=== PATIENT | male | born 1945 | race Caucasian/White ===

== ENCOUNTER 2022-12-30 07:39 | Inpatient (IN) | payer MEDICARE, SELFPAY ==
[2022-12-30] VITALS (30 sets, daily range): BP systolic 80–137; BP diastolic 54–81; PULSE 67–97; RESP 14–24; TEMP 35.8–37.1; O2SAT 88–95; BMI 29.9
--- NOTE | 2022-12-30 08:44 | CRLHL7_ITS ---
For Patients: As a result of the Century Cures Act, medical imaging exams and procedure reports are released immediately into your electronic medical record. You may view this report before your referring provider. If you have questions, please contact your health care provider. INDICATION: RLQ pain TECHNIQUE: CT abdomen and pelvis with ISOVUE 370 91CC IV contrast. COMPARISON: None. FINDINGS: The liver is normal in size, shape and attenuation. Gallbladder and biliary tree are normal. The spleen, adrenal glands and pancreas are within normal limits. The kidneys are unremarkable. Dilated fluid filled appendix measures up to 2 cm. There is surgery wall thickening severe surrounding inflammation. There are at least 2 appendicoliths with the larger at the appendix base measuring 1.2 cm. No evidence of rim enhancing collection to suggest abscess. No evidence of free air. Right lower quadrant mesenteric inflammation and Vasa recta engorgement as well as mildly prominent subcentimeter lymph nodes which are likely reactive. Pelvic organs are unremarkable. The lower chest is unremarkable. IMPRESSION: Acute appendicitis with severe surrounding inflammation and a 1.2 cm appendicolith at the appendix base. No evidence of rim enhancement to suggest abscess. Please note that all CT scans at this facility use dose modulation, iterative reconstruction, and/or weight-based dosing when appropriate to reduce radiation dose to as low as reasonably achievable. Dictated by Juan Ramon Shelton MD @ 12/30/2022 10:42:40 AM (Electronically Signed)
--- NOTE | 2022-12-30 08:45 | ED.ABDPAIN ---
HPI - Abdominal Pain General Chief Complaint: Abdominal Pain Stated Complaint: Abdominal pain/nausea/vomiting Time Seen by Provider: 12/30/22 08:39 History of Present Illness HPI narrative: This 77-year-old male comes in with abdominal pain that began a day and half ago. He states that it is a constant pain and it is located in the right lower quadrant. The pain is worse with movement. He has had some nausea, vomiting, and diarrhea. He has not taken much to drink and has not had any interest in eating food. Prior to this he was in good health. He does not report any fevers. Related Data Home Medications Medication Instructions Recorded Confirmed aspirin 81 mg chewable tablet 81 mg PO DAILY 12/30/22 12/30/22 atorvastatin 10 mg tablet 10 mg PO DAILY 12/30/22 12/30/22 lisinopril 10 mg tablet 10 mg PO DAILY 12/30/22 12/30/22 Allergies Allergy/AdvReac Type Severity Reaction Status Date / Time penicillan cream Allergy Uncoded 12/30/22 08:12 Review of Systems Status of ROS Reports: 10 or more systems reviewed and unremarkable except as noted in History and below Narrative Constitutional: No fevers, no weight gain or loss. Eyes: No discharge. No vision changes. HENT: No congestion, no sore throat, no ear pain. Cardiovascular: No chest pain, no palpitations. Respiratory: No shortness of breath, no wheezes, no cough. Gastrointestinal: Abdominal pain with vomiting and diarrhea as described above. Genitourinary: No dysuria, no hematuria. Musculoskeletal: Normal range of motion. Skin: No rashes, no pruritis. Neurological: No dizziness, weakness, sensory change, speech change. Endo/Heme/Allergies: No bruising or bleeding. No polydipsia. Pysch: no suicidality, no anxiety, no insomnia. All other systems reviewed and are negative. PFSH PFSH Social History Smoking Status: Never smoker Do you use any of these nicotine containing products: None How often do you have a drink containing alcohol: 2-4 times a month How many standard drinks containing alcohol do you have on a typical day: 1 or 2 AUDIT-C Alcohol total score: 2 Non-prescribed substance use: denies use Exam Narrative: Exam Narrative: Constitutional: Well-developed, well-nourished, no acute distress. HEENT: Normocephalic, atraumatic. Neck: Normal range of motion. Nontender. Supple. Heart: Regular. No murmurs. Normal rate. Intact distal pulses. Lungs: Clear to auscultation. No chest discomfort. No wheezes, rhonchi, or rales. Abdomen: Normal bowel sounds. Tenderness in the right lower quadrant. Rebound tenderness is present. Genitalia: Deferred. Back: No midline tenderness. Normal range of motion. Extremities: Normal range of motion. No injury. Skin: Intact. No rash. Warm. No erythema or pallor. Neurologic: No altered sensation. No weakness. Alert and oriented. Psychiatric: No suicidality. No anxiety or depression. No insomnia. Nursing notes and vitals signs are reviewed. Const: Vital Signs, click to edit/add: Vital Signs - 24 hr 12/30/22 08:04 Temperature 97.8 F Pulse Rate [Pulse Oximeter] 87 Respiratory Rate 20 Blood Pressure [Ri ght Upper Arm] 114/66 Pulse Oximetry 94 Oxygen Delivery Me thod Room Air Course Vital Signs Vital signs: Initial Vital Signs Temperature 97.8 F 12/30/22 08:04 Temperature Source Temporal Artery Scan 12/30/22 08:04 Pulse Rate 87 12/30/22 08:04 Respiratory Rate 20 12/30/22 08:04 Blood Pressure 114/66 12/30/22 08:04 Blood Pressure Mean 82 12/30/22 08:04 Blood Pressure Position Sitting 12/30/22 08:04 Pulse Oximetry 94 12/30/22 08:04 Oxygen Delivery Method 12/30/22 08:04 Vital Signs Temperature 97.8 F 12/30/22 08:04 Pulse Rate 87 12/30/22 08:04 Respiratory Rate 20 12/30/22 08:04 Blood Pressure 114/66 12/30/22 08:04 Pulse Oximetry 94 12/30/22 08:04 Oxygen Delivery Method 12/30/22 08:04 Temperature 97.8 F 12/30/22 08:04 Pulse Rate 87 12/30/22 08:04 Respiratory Rate 20 12/30/22 08:04 Blood Pressure 114/66 12/30/22 08:04 Pulse Oximetry 94 12/30/22 08:04 Oxygen Delivery Method 12/30/22 08:04 MDM - Abdominal Pain MDM Narrative Medical decision making narrative: This patient comes in with abdominal pain and rebound tenderness. Pain is located in the right lower quadrant and is suspicious for appendicitis. An IV was established and CT imaging with contrast is acquired. This does show evidence of an uncomplicated acute appendicitis. I did contact the surgeon on-call, Dr. Martinez, who is currently in clinic and will look at images and arrange for appendectomy today. Dr. Bello will be able to do the surgery. Lab Data Labs: Lab Results 12/30/22 12/30/22 12/30/22 Range/Units 09:04 09:04 10:48 WBC 14.02 H (4.50-11.00) K/uL RBC 5.51 (4.30-5.90) m/uL Hgb 16.2 (13.5-17.5) gm/dL Hct 47.4 (37.0-53.0) % MCV 86 (80-100) fL MCH 29 (26-34) pg MCHC 34 (32-36) gm/dL RDW Coeff of Anastasiia 11.9 (11.5-15.5) % Plt Count 199 (140-440) K/uL Neut % (Auto) 84.9 H (42.0-72.0) % Lymph % (Auto) 8.0 L (20-44) % [place] % (Auto) 6.8 (0.0-11.0) % Eos % (Auto) 0.0 (0.0-7.0) % Baso % (Auto) 0.1 (0.0-3.0) % Neut # (Auto) 11.90 H (1.7-7.0) K/uL Lymph # (Auto) 1.10 (0.90-2.90) K/uL [place] # (Auto) 1.00 H (0.00-0.90) K/UL Eos # (Auto) 0.00 (0.00-0.50) K/uL Baso # (Auto) 0.00 (0.00-0.30) K/uL Sodium 136 (135-149) mmol/L Potassium 4.1 (3.6-5.1) mmol/L Chloride 104 (96-114) mmol/L Carbon Dioxide 25 (20-32) mmol/L BUN 15 (7-30) mg/dL Creatinine 1.0 (0.5-1.5) mg/dL Estimated Creat Clear 56.71 Estimated GFR 78 ml/min Glucose 144 H (60-115) mg/dL Calcium 8.8 (8.4-10.6) mg/dL Total Bilirubin 0.9 (0.1-1.5) mg/dL Direct Bilirubin 0.2 (0.0-0.5) mg/dL AST 28 (12-35) U/L ALT 34 (4-50) U/L Alkaline Phosphatase 117 (40-150) U/L Total Protein 7.6 (6.0-8.3) g/dL Albumin 4.2 (3.3-5.0) g/dL Lipase 65 (23-300) U/L SARS-CoV-2 (PCR) Negative SARS-CoV-2 (Negative) Imaging Data CT scan - abdomen: Radiologist's impression: Acute appendicitis with severe surrounding inflammation and a 1.2 cm appendicolith at the appendix base. No evidence of rim enhancement to suggest abscess. Discharge Plan Discharge Clinical Impression: Acute appendicitis Patient Disposition: XFER to OR Condition: Unchanged Prescriptions: No Action lisinopril 10 mg tablet 10 mg PO DAILY atorvastatin 10 mg tablet 10 mg PO DAILY aspirin 81 mg tablet,chewable 81 mg PO DAILY Follow Up/Referrals: Provider,Not a Local [Primary Care Provider] -
[2022-12-30] MEDS: 0.9 % SODIUM CHLORIDE 1000 ml 1,000 ML IV (09:02)
[2022-12-30] MEDS: ONDANSETRON 2 MG/ML inj 4 MG IVP (09:03)
[2022-12-30 09:18] LABS: Basophils Percent Auto 0.1 % (0.0-3.0); Hematocrit 47.4 % (37.0-53.0); Hemoglobin* 16.2 gm/dL (13.5-17.5); Immature Granulocytes Pct Auto 0.2 %; Mean Corpuscular HGB Conc 34 gm/dL (32-36); Mean Corpuscular Hemoglobin 29 pg (26-34); Mean Corpuscular Volume 86 fL (80-100); Monocytes Percent Auto 6.8 % (0.0-11.0); Neutrophils Percent Auto 84.9 % (42.0-72.0); Platelet Count* 199 K/uL (140-440); RDW Coefficient of Variation % 11.9 % (11.5-15.5); Red Blood Count 5.51 m/uL (4.30-5.90); White Blood Count* 14.02 K/uL (4.50-11.00)
[2022-12-30 09:21] LABS: Slide Review Reflex No
[2022-12-30 09:32] LABS: Albumin* 4.2 g/dL (3.3-5.0)
[2022-12-30 09:33] LABS: Chloride* 104 mmol/L (96-114); Potassium* 4.1 mmol/L (3.6-5.1); Sodium* 136 mmol/L (135-149)
[2022-12-30 09:35] LABS: Bilirubin Direct* 0.2 mg/dL (0.0-0.5); Bilirubin Total* 0.9 mg/dL (0.1-1.5); Carbon Dioxide* 25 mmol/L (20-32); Est. Creatinine Clearance* 56.71; Estimated Glomerular Filt Rate 78 ml/min
[2022-12-30 09:36] LABS: Alanine Aminotransferase* 34 U/L (4-50); Alkaline Phosphatase* 117 U/L (40-150); Aspartate Amino Transferase* 28 U/L (12-35); Blood Urea Nitrogen* 15 mg/dL (7-30); Calcium* 8.8 mg/dL (8.4-10.6); Glucose* 144 mg/dL (60-115); Lipase* 65 U/L (23-300); Total Protein* 7.6 g/dL (6.0-8.3)
[2022-12-30 11:34] LABS: SARS PCR* Negative SARS-CoV-2 (Negative)
--- NOTE | 2022-12-30 12:43 | PM.GSCN ---
History of Present Illness Consult details Date Seen: 12/30/22 Consult date: 12/30/22 Narrative: Patient presented to the emergency department with a 2 day history of right lower quadrant abdominal pain. He states that the pain started Friday. He has never had pain like this before. Nothing seems to make the pain better and it has gotten worse since he 1st noticed it. He denies any nausea or vomiting. He has had a decrease in appetite. He last ate on Friday. His abdominal surgical history is positive for an inguinal hernia done 30 years prior. 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 Review of Systems Status of ROS: Reports: 6 or more systems reviewed and unremarkable except as noted in History and below [facility] Social History Smoking Status: Never smoker Do you use any of these nicotine containing products: None How often do you have a drink containing alcohol: 2-4 times a month How many standard drinks containing alcohol do you have on a typical day: 1 or 2 AUDIT-C Alcohol total score: 2 Non-prescribed substance use: denies use Meds Home Medications and Allergies Home Medications Medication Instructions Recorded Confirmed Type aspirin 81 mg chewable tablet 81 mg PO DAILY 12/30/22 12/30/22 History atorvastatin 10 mg tablet 10 mg PO DAILY 12/30/22 12/30/22 History lisinopril 10 mg tablet 10 mg PO DAILY 12/30/22 12/30/22 History Allergies Allergy/AdvReac Type Severity Reaction Status Date / Time penicillan cream Allergy Uncoded 12/30/22 08:12 Exam Narrative: Exam Narrative: General: Alert and oriented, no acute distress. Respiratory: Equal breath rise bilaterally, maintained on room air CV: Regular rhythm rate, well perfused Abdomen: Soft, tender to palpation right lower quadrant with some guarding. Const: Vital Signs, click to edit/add: Vital Signs - 24 hr 12/30/22 08:04 Temperature 97.8 F Pulse Rate [Pulse Oximeter] 87 Respiratory Rate 20 Blood Pressure [Ri ght Upper Arm] 114/66 Pulse Oximetry 94 Oxygen Delivery Me thod Room Air Results Labs Labs: Abnormal lab results 12/30/22 12/30/22 Range/Units 09:04 09:04 WBC 14.02 H (4.50-11.00) K/uL Neut % (Auto) 84.9 H (42.0-72.0) % Lymph % (Auto) 8.0 L (20-44) % Neut # (Auto) 11.90 H (1.7-7.0) K/uL [place] # (Auto) 1.00 H (0.00-0.90) K/UL Glucose 144 H (60-115) mg/dL Diabetes panel 12/30/22 Range/Units 09:04 Sodium 136 (135-149) mmol/L Potassium 4.1 (3.6-5.1) mmol/L Chloride 104 (96-114) mmol/L Carbon Dioxide 25 (20-32) mmol/L BUN 15 (7-30) mg/dL Creatinine 1.0 (0.5-1.5) mg/dL Glucose 144 H (60-115) mg/dL Calcium 8.8 (8.4-10.6) mg/dL AST 28 (12-35) U/L ALT 34 (4-50) U/L Alkaline Phosphatase 117 (40-150) U/L Total Protein 7.6 (6.0-8.3) g/dL Albumin 4.2 (3.3-5.0) g/dL Calcium panel 12/30/22 Range/Units 09:04 Calcium 8.8 (8.4-10.6) mg/dL Albumin 4.2 (3.3-5.0) g/dL Pituitary panel 12/30/22 Range/Units 09:04 Sodium 136 (135-149) mmol/L Potassium 4.1 (3.6-5.1) mmol/L Chloride 104 (96-114) mmol/L Carbon Dioxide 25 (20-32) mmol/L BUN 15 (7-30) mg/dL Creatinine 1.0 (0.5-1.5) mg/dL Glucose 144 H (60-115) mg/dL Calcium 8.8 (8.4-10.6) mg/dL Adrenal panel 12/30/22 Range/Units 09:04 Sodium 136 (135-149) mmol/L Potassium 4.1 (3.6-5.1) mmol/L Chloride 104 (96-114) mmol/L Carbon Dioxide 25 (20-32) mmol/L BUN 15 (7-30) mg/dL Creatinine 1.0 (0.5-1.5) mg/dL Glucose 144 H (60-115) mg/dL Calcium 8.8 (8.4-10.6) mg/dL Total Bilirubin 0.9 (0.1-1.5) mg/dL AST 28 (12-35) U/L ALT 34 (4-50) U/L Alkaline Phosphatase 117 (40-150) U/L Total Protein 7.6 (6.0-8.3) g/dL Albumin 4.2 (3.3-5.0) g/dL All other labs normal. Imaging Abdomen CT scan report/results: report reviewed and image reviewed Assessment and Plan Assessment and plan (1) Acute appendicitis: Status: Acute Plan The patient is a 77-year-old male who presented with a history, exam and imaging findings consistent with acute appendicitis. I discussed the treatment options with the patient including non-surgical and surgical options. I recommended laparoscopic appendectomy. The risks of surgery were reviewed with the patient including the risks of bleeding, post-operative wound or intra-abdominal infection, injury to abdominal structures and possible conversion to an open operation. We also discussed anesthetic complications including MS, stroke, respiratory failure and blood clots. The patient voiced an understanding of our conversation, had the opportunity to ask questions, agreed to accept the risks of surgery and asked that we proceed with surgery. -OR for laparoscopic appendectomy -NPO, IV fluids -will give preoperative Zosyn -plan to admit for observation postoperatively
[2022-12-30] MEDS: PIPERACILLIN/TAZOBACTAM 3.375 GM in 0.9 % SODIUM CHLORIDE Mini-bag 100 ML IVPB ×2 (13:20→20:16)
--- NOTE | 2022-12-30 13:37 | W.ANESCHARGE ---
Anesthesia Charges Start Date/Time Anesthesia Start Date: 12/30/22 Anesthesia Start Time: 13:12 Stop Date/Time Anesthesia Stop Date: 12/30/22 Anesthesia Stop Time: 17:03 Summary Emergency: MDA Extremes of Age - Over 70 or under 1: MDA
[2022-12-30] MEDS: BUPIVACAINE 0.5% 30 ML INJECTION (14:33)
--- NOTE | 2022-12-30 16:35 | CRLHL7_ITS ---
For Patients: As a result of the Century Cures Act, medical imaging exams and procedure reports are released immediately into your electronic medical record. You may view this report before your referring provider. If you have questions, please contact your health care provider. INDICATION: Postoperative instrument check. TECHNIQUE: Abdomen 1 view(s) COMPARISON: CT abdomen/pelvis earlier same day dated 12/30/2022. FINDINGS/IMPRESSION: Loop of catheter tubing projecting over the right lower quadrant of the abdomen, presumably reflective of a drain. Metallic surgical clip projects over the right lower quadrant, adjacent to the right L3 transverse process. Otherwise, no evidence of a retained metallic surgical instrument is identified with the provided field of view. Contrast is present within the urinary bladder. Few loops of mildly dilated small bowel in the upper abdomen, likely reflective of ileus. No acute osseous abnormality. Dictated by Lorna Soto MD @ 12/30/2022 5:04:47 PM (Electronically Signed)
--- NOTE | 2022-12-30 17:06 | W.ANESCHARGE ---
Anesthesia Charges Start Date/Time Anesthesia Start Date: 12/30/22 Anesthesia Start Time: 13:12 Stop Date/Time Anesthesia Stop Date: 12/30/22 Anesthesia Stop Time: 17:03 Summary Emergency: SUIT [employer]KER
--- NOTE | 2022-12-30 17:37 | PM.GSPRC ---
Operative Note Date of procedure: 12/30/22 Procedure Description: After discussing the risks and benefits of the procedure, the patient signed informed consent.? The operative site was marked and the patient was brought to the operating room and placed on the operating table in supine position.? Care was taken to pad the patient's pressure points.?? The patient was then [intubated/given sedation] by anesthesia.?? The operative site was then prepped and draped in the usual sterile fashion.? A time-out was then performed. ? Sterile dressings were then applied. ? The patient was then woken and transported to the recovery area in stable condition. ? The patient tolerated the procedure well. Surgeon: Pat Bello MD
[2022-12-30] MEDS: LACTATED RINGERS 1000 ML 1,000 ML 125 ML IV (17:51)
--- NOTE | 2022-12-30 23:43 | PC.NURSE ---
Pt requiring 3L/O2 via NC to maintain SpO2 91-93%. RR= 24 and shallow, pt encouraged to deep breathe. BP's soft, 90's/50's, pt has denied dizziness or lightheadedness. Surgical dressing to abdomen C,D,&I with patent KEVIN draining bloody/serosanguineous fluid approx. 30 ml this shift. Rates pain 2/10, declines pain meds at this time.
[2022-12-31] VITALS (7 sets, daily range): BP systolic 104–143; BP diastolic 64–81; PULSE 71–83; RESP 16–18; TEMP 36.4–36.7; O2SAT 90–94
[2022-12-31] MEDS: PIPERACILLIN/TAZOBACTAM 3.375 GM in 0.9 % SODIUM CHLORIDE Mini-bag 100 ML IVPB ×4 (01:47→19:39)
[2022-12-31] MEDS: LACTATED RINGERS 1000 ML 1,000 ML 125 ML IV ×2 (01:48→12:07)
[2022-12-31] MEDS: HYDROmorphone 0.5 mg/0.5 ml inj IVP ×2 (03:46→13:04)
--- NOTE | 2022-12-31 06:33 | PC.NURSE ---
Shift note: Surgical dressing is C/D/I no additional drainage. KEVIN drain is intact, with medium amount of output, see I&Os. Pt rates pain 2-5/10, RN treated per eMAR with relief. No c/o nausea, bowel sounds present, pt is voiding.
[2022-12-31 07:09] LABS: Basophils Percent Auto 0.1 % (0.0-3.0); Hematocrit 41.4 % (37.0-53.0); Hemoglobin* 14.1 gm/dL (13.5-17.5); Immature Granulocytes Pct Auto 0.3 %; Lymphocytes Percent Auto 10.3 % (20-44); Mean Corpuscular HGB Conc 34 gm/dL (32-36); Mean Corpuscular Hemoglobin 30 pg (26-34); Mean Corpuscular Volume 87 fL (80-100); Monocytes Percent Auto 7.8 % (0.0-11.0); Neutrophils Percent Auto 81.5 % (42.0-72.0); Platelet Count* 160 K/uL (140-440); RDW Coefficient of Variation % 12.3 % (11.5-15.5); Red Blood Count 4.74 m/uL (4.30-5.90); White Blood Count* 16.15 K/uL (4.50-11.00)
[2022-12-31 07:20] LABS: Chloride* 106 mmol/L (96-114); Sodium* 137 mmol/L (135-149)
[2022-12-31 07:21] LABS: Potassium* 4.5 mmol/L (3.6-5.1); Slide Review Reflex No
[2022-12-31 07:23] LABS: Carbon Dioxide* 28 mmol/L (20-32); Creatinine* 1.2 mg/dL (0.5-1.5); Est. Creatinine Clearance* 47.26; Estimated Glomerular Filt Rate 63 ml/min
[2022-12-31 07:24] LABS: Blood Urea Nitrogen* 21 mg/dL (7-30); Calcium* 7.7 mg/dL (8.4-10.6); Glucose* 140 mg/dL (60-115)
--- NOTE | 2022-12-31 07:49 | PM.GSPN ---
Subjective Subjective Date Seen: 12/31/22 Interval history: Patient is doing well this morning. He is sore over the incision, but is reporting overall improvement in his abdominal pain since admission. No appetite, denies any nausea. Is tolerating some sips and ice chips this morning. He did pass a little bit of gas this morning, no bowel movement. Exam Narrative: Exam Narrative: General: Alert and oriented, no acute distress Abdomen: Soft, appropriately tender over incision sites. Mild distention, no guarding or rebound. Right lower quadrant drain in place with minimal serosanguineous output. Const: Vital Signs, click to edit/add: Vital Signs - 24 hr 12/30/22 08:04 12/30/22 10:06 12/30/22 10:30 Temperature 97.8 F Pulse Rate 82 93 Pulse Rate [Left P ulse Oximeter] Pulse Rate [Pulse Oximeter] 87 Respiratory Rate 20 Blood Pressure Blood Pressure [Ri ght Arm] Blood Pressure [Ri ght Upper Arm] 114/66 Pulse Oximetry 94 94 94 Oxygen Delivery Me thod Room Air Oxygen Flow Rate 12/30/22 10:34 12/30/22 11:00 12/30/22 11:01 Temperature Pulse Rate 85 86 87 Pulse Rate [Left P ulse Oximeter] Pulse Rate [Pulse Oximeter] Respiratory Rate Blood Pressure 137/72 136/68 Blood Pressure [Ri ght Arm] Blood Pressure [Ri ght Upper Arm] Pulse Oximetry 94 95 93 Oxygen Delivery Me thod Oxygen Flow Rate 12/30/22 11:30 12/30/22 11:32 12/30/22 12:00 Temperature Pulse Rate 97 92 93 Pulse Rate [Left P ulse Oximeter] Pulse Rate [Pulse Oximeter] Respiratory Rate Blood Pressure 125/72 Blood Pressure [Ri ght Arm] Blood Pressure [Ri ght Upper Arm] Pulse Oximetry 92 93 92 Oxygen Delivery Me thod Oxygen Flow Rate 12/30/22 12:01 12/30/22 12:30 12/30/22 12:32 Temperature 98.7 F Pulse Rate 93 92 87 Pulse Rate [Left P ulse Oximeter] Pulse Rate [Pulse Oximeter] Respiratory Rate Blood Pressure 130/81 133/72 Blood Pressure [Ri ght Arm] Blood Pressure [Ri ght Upper Arm] Pulse Oximetry 92 93 92 Oxygen Delivery Me thod Oxygen Flow Rate 12/30/22 17:05 12/30/22 17:10 12/30/22 17:15 Temperature 96.5 F L Pulse Rate 80 76 78 Pulse Rate [Left P ulse Oximeter] Pulse Rate [Pulse Oximeter] Respiratory Rate 14 14 14 Blood Pressure 94/66 95/66 87/65 L Blood Pressure [Ri ght Arm] Blood Pressure [Ri ght Upper Arm] Pulse Oximetry 88 90 93 Oxygen Delivery Me thod Nasal Cannula Nasal Cannula Nasal Cannula Oxygen Flow Rate 2 4 4 12/30/22 17:20 12/30/22 17:25 12/30/22 17:30 Temperature Pulse Rate 75 77 75 Pulse Rate [Left P ulse Oximeter] Pulse Rate [Pulse Oximeter] Respiratory Rate 14 14 14 Blood Pressure 90/64 95/67 96/70 Blood Pressure [Ri ght Arm] Blood Pressure [Ri ght Upper Arm] Pulse Oximetry 93 94 93 Oxygen Delivery Me thod Nasal Cannula Nasal Cannula Nasal Cannula Oxygen Flow Rate 4 4 4 12/30/22 17:35 12/30/22 17:45 12/30/22 18:00 Temperature 97 F L 97.6 F Pulse Rate 74 70 Pulse Rate [Left P ulse Oximeter] 70 Pulse Rate [Pulse Oximeter] Respiratory Rate 14 24 24 Blood Pressure 80/61 L Blood Pressure [Ri ght Arm] 97/54 L 101/60 Blood Pressure [Ri ght Upper Arm] Pulse Oximetry 93 92 Oxygen Delivery Me thod Nasal Cannula Nasal Cannula Nasal Cannula Oxygen Flow Rate 4 3 3 12/30/22 18:15 12/30/22 18:30 12/30/22 18:37 Temperature 97.3 F L Pulse Rate Pulse Rate [Left P ulse Oximeter] 67 71 70 Pulse Rate [Pulse Oximeter] Respiratory Rate 24 24 24 Blood Pressure Blood Pressure [Ri ght Arm] 93/58 L 103/63 97/54 L Blood Pressure [Ri ght Upper Arm] Pulse Oximetry 93 95 91 Oxygen Delivery Me thod Nasal Cannula Nasal Cannula Nasal Cannula Oxygen Flow Rate 3 3 3 12/30/22 18:37 12/30/22 18:45 12/30/22 19:15 Temperature 98 F Pulse Rate Pulse Rate [Left P ulse Oximeter] 70 69 Pulse Rate [Pulse Oximeter] Respiratory Rate 24 20 20 Blood Pressure Blood Pressure [Ri ght Arm] 109/69 97/81 Blood Pressure [Ri ght Upper Arm] Pulse Oximetry 91 93 94 Oxygen Delivery Me thod Nasal Cannula Nasal Cannula Nasal Cannula Oxygen Flow Rate 3 3 3 12/30/22 19:45 12/30/22 20:45 12/30/22 21:45 Temperature Pulse Rate Pulse Rate [Left P ulse Oximeter] 68 72 74 Pulse Rate [Pulse Oximeter] Respiratory Rate 20 20 20 Blood Pressure Blood Pressure [Ri ght Arm] 102/68 110/72 102/66 Blood Pressure [Ri ght Upper Arm] Pulse Oximetry 94 93 93 Oxygen Delivery Me thod Nasal Cannula Nasal Cannula Nasal Cannula Oxygen Flow Rate 3 3 3 12/30/22 22:45 12/31/22 03:00 Temperature 98 F Pulse Rate Pulse Rate [Left P ulse Oximeter] 74 73 Pulse Rate [Pulse Oximeter] Respiratory Rate 20 18 Blood Pressure Blood Pressure [Ri ght Arm] 101/64 104/68 Blood Pressure [Ri ght Upper Arm] Pulse Oximetry 93 93 Oxygen Delivery Me thod Nasal Cannula Nasal Cannula Oxygen Flow Rate 3 1 Labs/Imaging Labs Labs: WBC postoperatively did slightly increase 14--16 Imaging Imaging: No new imaging Progress Note: A&P Assessment and plan (1) Acute appendicitis: Status: Acute Assessment and Plan: Patient is postop day 1 laparoscopic converted to open appendectomy for perforated appendicitis. A right lower quadrant drain remains in place, output is serosanguineous. -continue NPO, okay for sips and ice chips -encourage ambulation, patient to walk the angelo 3 times this morning -continue to monitor drain output -trend fever and WBC curve -continue IV Zosyn -SCDs for DVT prophylaxis, Lovenox to start this evening
--- NOTE | 2022-12-31 15:08 | PC.NURSE ---
Patient is alert and orientated. Son is at bedside and supportive. Patient's pain ranged from a 2-5 at incision site. Abdominal dressing is clean,dry, intact and KEVIN drain is patient. Patient has been tolerating walks in the hallway. Tolerating sips and chips. Patient is reporting some reflux. Is now sitting up higher in bed and reported some relief. Waiting on callback from .
--- NOTE | 2022-12-31 18:01 | PC.NURSE ---
PATIENT PLEASANT AND COOPERATIVE, ALERT AND ORIENTED, UP SBA WITH TOLERATING WELL UP WALKING IN HALLWAYS X4 THUS FAR TODAY, RATING PAIN IN ABDOMEN 2/10 BEING MANAGED WITH PRN DILAUDID, PATIENT EXPRESSING SOME ACID REFLUX ALONG WITH INCREASED BURPING MD AWARE SEE NEW ORDERS, ATTEMPTED TO WEAN OFF OXYGEN TODAY ABLE TO KEEP SATS 88-92% ON RA WHILE SITTING UP IN CHAIR, WHEN LYING DOWN TO REST SATS DROP TO MID 80S REQUIRING 1L O2 TO MAINTAIN SATS 90% AND GREATER, MD AWARE, PATIENT USING IS TO 2500, DRESSING TO ABDOMEN CDI, KEVIN PATENT WITH MINIMAL OUTPUT.
[2022-12-31] MEDS: PANTOPRAZOLE SODIUM 40 MG INJ IVP (19:39)
[2022-12-31] MEDS: ENOXAPARIN 40 MG/0.4 ML INJ SUBCUT (20:40)
[2023-01-01] MEDS: LACTATED RINGERS 1000 ML 1,000 ML 125 ML IV ×3 (00:13→22:49)
[2023-01-01] MEDS: PIPERACILLIN/TAZOBACTAM 3.375 GM in 0.9 % SODIUM CHLORIDE Mini-bag 100 ML IVPB ×4 (01:23→19:30)
[2023-01-01 03:00] VITALS: BP 143/88; PULSE 77; RESP 16; TEMP 36.4; O2SAT 94
[2023-01-01] MEDS: ONDANSETRON 2 MG/ML inj IVP ×3 (05:18→14:51)
--- NOTE | 2023-01-01 05:23 | PC.NURSE ---
Shift note: Pt is doing well with A1, walker and GB to and from the BR. Dressing appears clean and dry, KEVIN patent and draining serosanguineous fluid. Abdomen appears large but pt denied any pain. At 0505, pt started vomiting. Vomitus bag given and Ondansetron 4mg given which wad effective. Pt confirmed that he has pass gas 2x tonight.
[2023-01-01 07:00] VITALS: BP 157/96; PULSE 76; RESP 16; TEMP 36.6; O2SAT 93
[2023-01-01 08:38] LABS: Basophils Absolute Auto 0.01 K/uL (0.00-0.30); Basophils Percent Auto 0.1 % (0.0-3.0); Hematocrit 41.5 % (37.0-53.0); Hemoglobin* 14.1 gm/dL (13.5-17.5); Immature Granulocytes Abs Auto 0.03 K/uL (0.00-0.30); Immature Granulocytes Pct Auto 0.3 %; Lymphocytes Percent Auto 6.7 % (20-44); Mean Corpuscular HGB Conc 34 gm/dL (32-36); Mean Corpuscular Hemoglobin 30 pg (26-34); Mean Corpuscular Volume 88 fL (80-100); Monocytes Percent Auto 8.4 % (0.0-11.0); Neutrophils Percent Auto 84.5 % (42.0-72.0); Platelet Count* 185 K/uL (140-440); RDW Coefficient of Variation % 12.4 % (11.5-15.5); Red Blood Count 4.73 m/uL (4.30-5.90); White Blood Count* 10.67 K/uL (4.50-11.00)
[2023-01-01 08:40] LABS: Slide Review Reflex No
[2023-01-01] MEDS: PANTOPRAZOLE SODIUM 40 MG INJ IVP (09:03)
[2023-01-01] MEDS: 0.9 % SODIUM CHLORIDE 250 ml IV (09:04)
--- NOTE | 2023-01-01 09:53 | PM.GSPN ---
Subjective Subjective Date Seen: 01/01/23 Interval history: Patient overall is doing well this morning. He denies any abdominal pain or distension. He did pass gas this morning, no bowel movement. His biggest complaint is persistent hiccups and burping. He denies any appetite. He did have a small emesis this morning. Denies any current nausea. Has been able to get up and walk the halls. No fevers overnight. Exam Narrative: Exam Narrative: General: Alert and oriented, no acute distress Abdomen: Mild distention, soft, appropriately tender over incision sites with no guarding or rebound. Drain in right lower quadrant with minimal serous output in drain. Right lower quadrant incision with tim in place clean/dry/intact with no concern for infection. Lap sites with Dermabond over incisions clean/dry/intact with no concern for infection. Const: Vital Signs, click to edit/add: Vital Signs - 24 hr 12/31/22 11:00 12/31/22 15:00 12/31/22 15:00 Temperature 98.1 F 97.6 F Pulse Rate [Left P ulse Oximeter] Pulse Rate [Right Pulse Oximeter] 79 79 Respiratory Rate 18 16 16 Blood Pressure [Ri ght Arm] 129/72 143/79 H Pulse Oximetry 92 91 Oxygen Delivery Me thod Nasal Cannula Nasal Cannula Oxygen Flow Rate 1 1 12/31/22 18:27 12/31/22 19:00 12/31/22 23:00 Temperature 98 F Pulse Rate [Left P ulse Oximeter] Pulse Rate [Right Pulse Oximeter] 83 Respiratory Rate 16 16 16 Blood Pressure [Ri ght Arm] 136/81 Pulse Oximetry 91 90 Oxygen Delivery Me thod Nasal Cannula Nasal Cannula Oxygen Flow Rate 1 1 12/31/22 23:00 12/31/22 23:00 01/01/23 03:00 Temperature 97.7 F 97.6 F Pulse Rate [Left P ulse Oximeter] Pulse Rate [Right Pulse Oximeter] 78 77 Respiratory Rate 18 16 16 Blood Pressure [Ri ght Arm] 122/79 143/88 H Pulse Oximetry 90 92 94 Oxygen Delivery Me thod Nasal Cannula Nasal Cannula Nasal Cannula Oxygen Flow Rate 1 1 1 01/01/23 07:00 01/01/23 07:00 Temperature 97.9 F Pulse Rate [Left P ulse Oximeter] 76 Pulse Rate [Right Pulse Oximeter] Respiratory Rate 16 16 Blood Pressure [Ri ght Arm] 157/96 H Pulse Oximetry 93 93 Oxygen Delivery Me thod Nasal Cannula Nasal Cannula Oxygen Flow Rate 1 1 Labs/Imaging Labs Labs: WBC has normalized (10), postop hemoglobin stable at 14.1 this is down from admission but likely represents dilution and intraoperative blood loss. Imaging Imaging: No new imaging today. Progress Note: A&P Assessment and plan (1) Acute appendicitis: Status: Acute Assessment and Plan: Patient is postop day 2 laparoscopic converted to open appendectomy for perforated appendicitis. A right lower quadrant drain remains in place, output is serous in quality. Patient is suffering from a postop ileus, this is not too surprising giving the abscess seen intraoperatively and evidence of perforation. Even though patient has started to pass gas, will hold off on advancing diet given recent episode of emesis. -continue NPO, okay for sips and ice chips -encourage ambulation -continue to monitor drain output -trend fever and WBC curve -continue IV Zosyn -SCDs for DVT prophylaxis, Lovenox
--- NOTE | 2023-01-01 10:03 | PM.GSPRC ---
Operative Note Date of procedure: 12/30/22 Pre-op diagnosis: Acute appendicitis Post-op diagnosis: Same,perforated with associated abscess Type of Procedure: Laparoscopic converted to open appendectomy Indications: Patient is a 77-year-old male who presented to the emergency department with a 2 day history of worsening right lower quadrant abdominal pain. Workup was obtained, including CT scan, which documented acute appendicitis. Risks and benefits of operative intervention were discussed at length with the patient. Risks included but was not limited to: Bleeding, infection, risk of damage to surrounding structures, possible need for additional procedures, possible need to convert to an open operation and postoperative complications such as pneumonia, pulmonary emboli or OK. All questions and concerns were addressed with the patient agreeing to proceed. Procedure Description: After discussing the risks and benefits of the procedure, the patient signed informed consent.? The operative site was marked and the patient was brought to the operating room and placed on the operating table in supine position.? Care was taken to pad the patient's pressure points.?? The patient was then intubated by anesthesia.?? The operative site was then prepped and draped in the usual sterile fashion.? A time-out was then performed. Entrance to the abdomen was obtained via a 5 mm optical trocar in the left upper quadrant. The abdomen was insufflated and briefly surveyed for any signs of injury. There were none. A 12 mm port was placed lateral to the umbilicus as well as a 5 mm port in the left lower quadrant under direct vision. The patient was then placed in Trendelenburg position with the right side up. The small bowel was gently moved out of the way. The cecum was visualized but the appendix was not easily identified with a large amount of surrounding inflammation and adherent small bowel to where the appendix would be. The adhesions were gently taken down with blunt dissection and a moderate amount of purulence expelled. The suction platen press operator was used to help minimize contamination intraoperatively. The abscess cavity had surrounding fibrinous exudate and some necrotic tissue. The cecum was mobilized laparoscopically by taking down lateral attachments with hook cautery. Once the cecum was free the base of the appendix was able to be identified. There was a large perforation identified at the base with a large calcified stool ball. The stool ball was removed from the abdomen via an Endo-Catch bag to limit contamination. The base of the appendix was circumferentially dissected free and the posterior aspect of the cecum was also dissected to help assist with mobilization. This was made difficult secondary to adhesions from the abscess. A 45 mm purple staple load was used to go across the base of the appendix and partially on the cecum. After the staple was fired the staple line was inspected. Due to the necrotic nature of the tissue the staple line did not hold and there was evidence of a persistent perforation in the cecum. The decision was made at this time to convert to an open operation. All laparoscopic equipment was removed from the field. A transverse incision was made in the right lower quadrant with a 15 scalpel. Dissection was carried down through subcutaneous tissue. The anterior fascia was sharply incised. The underlying rectus muscle was partially transected. The posterior fascia and peritoneum was grasped and sharply incised to enter into the abdomen. The previous placed air was decompressed from the abdomen and a small Luiz wound retractor placed within the incision. Despite the previous laparoscopic mobilization of the cecum and appendix, visualization of the cecum was difficult secondary to dilated bowel and surrounding adhesions. Once the cecum was identified a Anya was used to bring the appendiceal base interview. The perforation was closed via Lembert stitches in surrounding healthy serosa. This was done with interrupted 3-0 silk pop-off sutures. I attempted to dunk the now closed appendiceal base with a 3-0 Vicryl pursestring stitch around the base. The proximal aspect of the appendix was grasped with a [place] and the mesentery transected with Ebony clamps and silk ties. The appendix was then removed from the abdomen. A calcified stool ball was seen in the abscess cavity and sent with the specimen. There was a small amount of bleeding from inflammatory attachments, these were controlled with cautery and medium clips. The wound bed was then gently irrigated with saline. It a 15 Italian drain was placed in the right lower quadrant and hooked to bulb suction. The peritoneum and posterior fascia was closed with a running 3 0 Vicryl stitch. The anterior fascia was closed with 2 running 1-0 PDS suture. The subcutaneous space was closed with interrupted 3 0 Vicryl stitches. The skin was closed with a skin stapler. The 12 mm port site fascia was closed with an 0 Vicryl stitch. The laparoscopic sites were closed with Monocryl. Sterile dressings were then applied. Instrument sponge and needle counts were correct at the end of the case. The patient was then woken and transported to the PACU in stable condition. ? ? The patient tolerated the procedure well. Findings: Perforated appendix with associated abscess. Perforation is present at the base of the cecum. Laparoscopic converted to open. Anesthesia: MICHAEL Surgeon: Pat Bello MD Estimated blood loss (mL): 50 Specimen: Appendix Condition: stable Disposition: PACU
[2023-01-01 11:00] VITALS: BP 158/96; PULSE 82; RESP 16; TEMP 36.6; O2SAT 93
--- NOTE | 2023-01-01 14:16 | PC.NURSE ---
End of shift- Patient is alert and orientated. Vital signs stable though patient is mildly hypertensive and has stated pain is tolerable today. Complained of nausea that resolved with zofran and has been hiccuping and belching throughout shift. Bowel sounds active in all four quadrants. Dressing removed by surgeon and incision is susan. KEVIN drain was patent and drained 120ml serosanguineous fluid. Patient ambulated in hallway twice today and tolerated well.
--- NOTE | 2023-01-01 14:56 | PC.NURSE ---
Patient had large dark green emesis. Was given zofran.
[2023-01-01 15:00] VITALS: BP 150/85; PULSE 88; RESP 20; TEMP 36.6; O2SAT 92
--- NOTE | 2023-01-01 15:43 | CRLHL7_ITS ---
For Patients: As a result of the Century Cures Act, medical imaging exams and procedure reports are released immediately into your electronic medical record. You may view this report before your referring provider. If you have questions, please contact your health care provider. Indication: Tube placement. Technique: Abdomen 3 view. Comparison: Delivery 05/22/2023. Findings/Impression: Enteric tube with tip overlying the expected location of the gastroesophageal junction. Proximal side hole overlying the expected location of the mid esophagus. Recommend advancement by approximately 13 centimeters for more optimal positioning. Worsening gas distended dilated loops small and large bowel with small-bowel loops measuring up to 4.5 centimeters. Postoperative changes in the right lower quadrant. Stable drainage catheter Osseous structures are unremarkable for age. Dictated by Bairon Patricio MD @ 01/01/2023 5:50:46 PM (Electronically Signed)
[2023-01-01] MEDS: BENZOCAINE/MENTHOL 1 EACH LOZENGE MUCOUS MEM (16:56)
[2023-01-01] MEDS: phenoL 1.4 % THROAT SPRAY 1 SPRAY MUCOUS MEM (17:25)
--- NOTE | 2023-01-01 18:18 | RESP.RT ---
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 continue to encourage sitting in chair, and walking.
--- NOTE | 2023-01-01 18:57 | CRLHL7_ITS ---
For Patients: As a result of the Century Cures Act, medical imaging exams and procedure reports are released immediately into your electronic medical record. You may view this report before your referring provider. If you have questions, please contact your health care provider. Indication: NG-tube placement. Technique: Single portable semi-upright view of the abdomen. Comparison: Abdominal CT 12/30/2022 and abdominal radiograph from the same day. Findings: Interval advancement of the enteric tube with both the tip and the side port both projecting over the stomach in the left upper quadrant. Unchanged multiple dilated loops of small bowel. No convincing evidence for free air. Low lung volumes and bronchovascular crowding at the lung bases. Impression: Interval advancement of the enteric tube into good position. Unchanged multiple dilated loops of small bowel compatible with either small-bowel obstruction or ileus. Dictated by Oliver Mclaughlin MD @ 01/01/2023 7:36:25 PM (Electronically Signed)
--- NOTE | 2023-01-01 18:58 | PC.NURSE ---
End of Shift: Patient pleasant and cooperative. Patient vitally stable, lungs course crackles, BS WNL, IV running LR at 125. Patient independent. NG placed initially at 45, then later advanced to 59. Iniitial drainage upon insertion 250ml, overall drainage from NG-1250, KEVIN drainage 20ml. Patient NPO and urinating. Patient rates abdomen pain 3/10, declined pain meds. Patient incison and lap sites x2 C/D/I.
[2023-01-01 19:20] VITALS: BP 148/81; PULSE 73; RESP 18; TEMP 37.1; O2SAT 93
[2023-01-01] MEDS: ENOXAPARIN 40 MG/0.4 ML INJ SUBCUT (20:23)
[2023-01-01] MEDS: ATORVASTATIN 10 MG TABLET PO (20:23)
[2023-01-01 23:15] VITALS: BP 148/81; PULSE 76; RESP 18; TEMP 37; O2SAT 93; O2SAT 94
--- NOTE | 2023-01-01 23:29 | PC.NURSE ---
Shift [id number]- Patient denies pain or need for pain medications. He also denies nausea. He is up to chair this evening. NG patent and draining very dark green output.
[2023-01-02] MEDS: PIPERACILLIN/TAZOBACTAM 3.375 GM in 0.9 % SODIUM CHLORIDE Mini-bag 100 ML IVPB ×4 (02:17→19:30)
[2023-01-02 02:45] VITALS: BP 167/92; PULSE 76; RESP 18; TEMP 36.6; O2SAT 94
--- NOTE | 2023-01-02 05:50 | PC.NURSE ---
End of shift. Pt has been very pleasant. abd pain 0-2/10 and he did not want anything for it. he is on ice chips NG is @ 59 at the nares. it is to LIS. canister was changed. ? He is up to chair and to bed. he walked in the halls. IV is patent. KEVIN was stripped and no output. Dressing is C/D/I .? NG patent and draining very dark green output. 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 IS used. Teds are on and off as well as SCds. no gas BS was hypoactive.
[2023-01-02 07:00] VITALS: BP 156/87; PULSE 73; RESP 16; TEMP 37.1; O2SAT 91
[2023-01-02] MEDS: 0.9 % SODIUM CHLORIDE 250 ml IV (07:54)
[2023-01-02] MEDS: LACTATED RINGERS 1000 ML 1,000 ML 125 ML IV ×2 (08:04→16:10)
[2023-01-02] MEDS: lisinopriL 20 MG TABLET PO (09:45)
[2023-01-02] MEDS: PANTOPRAZOLE SODIUM 40 MG INJ IVP (09:45)
--- NOTE | 2023-01-02 10:37 | PM.GSPN ---
Subjective Subjective Date Seen: 01/02/23 Interval history: Patient feels much better this morning since getting his NG tube place. He denies any abdominal pain. He relates the halls without difficulty. He does state that he passed a small amount of gas this morning. No real appetite at this time. No other concerns. Exam Narrative: Exam Narrative: General: Alert and oriented, no acute distress. Nontoxic in appearance. HEENT: NG tube in place with clear output in tube. Full canister bilious output. Abdomen: Soft, nontender nondistended. Incisions clean/dry/intact. Right lower quadrant drain with no output, removed at bedside and tolerated well. Const: Vital Signs, click to edit/add: Vital Signs - 24 hr 01/01/23 11:00 01/01/23 15:00 01/01/23 15:00 Temperature 97.9 F 98 F Pulse Rate [Apical ] Pulse Rate [Left P ulse Oximeter] 82 Pulse Rate [Right Pulse Oximeter] 88 88 Respiratory Rate 16 20 20 Blood Pressure [Ri ght Arm] 158/96 H 150/85 H Pulse Oximetry 93 92 Oxygen Delivery Me thod Nasal Cannula Room Air Oxygen Flow Rate 1 01/01/23 15:00 01/01/23 19:20 01/01/23 23:15 Temperature 98.8 F Pulse Rate [Apical ] 73 Pulse Rate [Left P ulse Oximeter] Pulse Rate [Right Pulse Oximeter] Respiratory Rate 20 18 18 Blood Pressure [Ri ght Arm] 148/81 H Pulse Oximetry 92 93 94 Oxygen Delivery Me thod Room Air Room Air Room Air Oxygen Flow Rate 01/01/23 23:15 01/01/23 23:15 01/02/23 02:45 Temperature 98.6 F 97.9 F Pulse Rate [Apical ] 76 76 76 Pulse Rate [Left P ulse Oximeter] Pulse Rate [Right Pulse Oximeter] 76 76 Respiratory Rate 18 18 18 Blood Pressure [Ri ght Arm] 148/81 H 167/92 H Pulse Oximetry 93 94 Oxygen Delivery Me thod Room Air Room Air Oxygen Flow Rate Progress Note: A&P Assessment and plan (1) Acute appendicitis: Status: Acute Assessment and Plan: Patient is postop day 3 laparoscopic converted to open appendectomy for perforated appendicitis. Patient did have an NG tube placed yesterday with removal of 1450 bilious output. His abdomen is much less distended this morning and he overall feels improved. He did pass a little bit of gas today and the output from the NG tube has cleared appropriately. Will continue with NG tube to low intermittent suction today, but evaluate for possible removal tomorrow. His drain was removed at bedside this morning and tolerated well. -continue NPO, okay for sips and ice chips -encourage ambulation -trend fever and WBC curve -continue IV Zosyn, once patient is return of bowel function will transition to a course of oral antibiotics. -SCDs for DVT prophylaxis, Lovenox
[2023-01-02 11:00] VITALS: BP 140/78; PULSE 96; RESP 16; O2SAT 91
--- NOTE | 2023-01-02 14:44 | PC.NURSE ---
Patient is alert and oriented. VSS with pain ranging from a 2-3 and patient stated that was manageable. SPO2 >90% on RA. Bowel sounds were hypoactive x4 but patient stated that he is passing flatus this afternoon. NG patent and drained 125ml of greenish/brown gastric contents. Incision and two lap sites are HARISH and appear to be healing well. KEVIN was removed by MD. Ambulating independently in hallway frequently and tolerating well.
[2023-01-02 15:00] VITALS: BP 154/76; PULSE 72; RESP 16; TEMP 36.9; O2SAT 92
[2023-01-02 19:24] VITALS: BP 170/99; PULSE 82; RESP 16; TEMP 36.6; O2SAT 93
--- NOTE | 2023-01-02 19:29 | PC.NURSE ---
End of shift-- Very pleasant and cooperative, alert and oriented patient. VSS and pt is afebrile. SPO2 maintained >90% on RA. He c/o some mild pain in left lower quadrant of abdomen today which he rated from 2-3 out of 10. He stated that it was tolerable and declined intervention for it. Incision along right lower abdomen, and KEVIN sites are HARISH, well approximated and appear to be healing well. KEVIN drain site is covered with a small dressing with minimal, old, dry drainage. NG is patent and draining a moderate amount of dark, green gastric contents. A few fine crackles noted in posterior right base of lungs this afternoon, otherwise CTA. He has ambulated the hallways independently 6x today and tolerated it well. Report to SEAMUS Boyd.
[2023-01-02] MEDS: ENOXAPARIN 40 MG/0.4 ML INJ SUBCUT (20:35)
[2023-01-02] MEDS: ATORVASTATIN 10 MG TABLET PO (20:35)
[2023-01-02 23:00] VITALS: BP 158/94; PULSE 78; RESP 16; RESP 18; TEMP 36.9; O2SAT 92
[2023-01-03] MEDS: LACTATED RINGERS 1000 ML 1,000 ML 125 ML IV ×3 (01:07→23:01)
[2023-01-03] MEDS: PIPERACILLIN/TAZOBACTAM 3.375 GM in 0.9 % SODIUM CHLORIDE Mini-bag 100 ML IVPB ×4 (01:44→19:32)
[2023-01-03 03:00] VITALS: BP 169/91; PULSE 70; RESP 16; TEMP 36.6; O2SAT 92
--- NOTE | 2023-01-03 05:15 | PC.NURSE ---
SHIFT NOTE 23-: Pt pleasant and cooperative, A&O. Up independent, on a couple walks overnight. Denies N/V, SOB, and CP. NG patent and draining. Denies pain. 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
[2023-01-03 07:00] VITALS: BP 161/94; PULSE 73; RESP 21; TEMP 37.6; O2SAT 92
--- NOTE | 2023-01-03 08:37 | PM.GSPN ---
Subjective Subjective Date Seen: 01/03/23 Interval history: Patient has some pain in the left upper quadrant. He feels that the pain is maybe worse than yesterday. He continues to feel bloated. He passed gas only a couple times that he describes as ?squicks?. He has been walking a lot. Exam Narrative: Exam Narrative: Abdomen is mildly distended, minimally tender to palpation in epigastrium but nowhere else. Laparoscopic incisions and right lower quadrant incisions are without surrounding erythema. Intact tim at the right lower quadrant incision. Const: Vital Signs, click to edit/add: Vital Signs - 24 hr 01/02/23 11:00 01/02/23 15:00 01/02/23 15:00 Temperature 98.5 F Pulse Rate [Left P ulse Oximeter] 96 Pulse Rate [Right Pulse Oximeter] 72 Respiratory Rate 16 16 16 Blood Pressure [Ri ght Arm] 140/78 H 154/76 H Pulse Oximetry 91 92 Oxygen Delivery Me thod Room Air Room Air Oxygen Flow Rate 0 01/02/23 15:00 01/02/23 19:24 01/02/23 23:00 Temperature 97.9 F Pulse Rate [Left P ulse Oximeter] Pulse Rate [Right Pulse Oximeter] 72 82 Respiratory Rate 16 16 16 Blood Pressure [Ri ght Arm] 170/99 H Pulse Oximetry 93 92 Oxygen Delivery Me thod Room Air Room Air Oxygen Flow Rate 0 01/02/23 23:00 01/03/23 03:00 01/03/23 07:00 Temperature 98.4 F 97.8 F 99.7 F H Pulse Rate [Left P ulse Oximeter] Pulse Rate [Right Pulse Oximeter] 78 70 73 Respiratory Rate 18 16 21 Blood Pressure [Ri ght Arm] 158/94 H 169/91 H 161/94 H Pulse Oximetry 92 92 92 Oxygen Delivery Me thod Room Air Room Air Room Air Oxygen Flow Rate 0 0 01/03/23 07:00 Temperature Pulse Rate [Left P ulse Oximeter] Pulse Rate [Right Pulse Oximeter] Respiratory Rate 21 Blood Pressure [Ri ght Arm] Pulse Oximetry 92 Oxygen Delivery Me thod Room Air Oxygen Flow Rate Progress Note: A&P Assessment and plan (1) Acute appendicitis: Status: Acute Plan 77-year-old male s/p open converted to lap appendectomy for perforated appendicitis POD 4. Patient's NG tube still put out 1600 yesterday and a 1000 since midnight. Will continue with NG tube until he starts to pass consistent gas and his abdomen is not as distended. Will continue antibiotics for now.
[2023-01-03] MEDS: PANTOPRAZOLE SODIUM 40 MG INJ IVP (09:02)
[2023-01-03] MEDS: lisinopriL 20 MG TABLET PO (09:02)
--- NOTE | 2023-01-03 10:30 | P.IMCN_ITS ---
Date of Consult Patient: Other Consult date: 01/03/23 Requesting Physician: General Surgery Primary Care Provider: Henrique Dumas PA-C at [facility] in [place] Consult Narrative Reason for consult: Medical management of comorbidities Narrative: Jerome Leos is a 77 year old male who presented to the hospital on 12/30/22 with perforated appendicitis, status post appendectomy with Dr. Bello of general surgery. Hospitalist team has been consulted given patient's elevated blood pressure. Local has a history of essential hypertension as an outpatient, his PCP is Henrique uDmas PA-C at the [facility] in [place]. As an outpatient, he is on lisinopril 20 mg daily. This has been continued throughout hospital stay; however, his blood pressures have remained above age- appropriate goal with systolic blood pressure in the 160-170 range. Patient is asymptomatic. He specifically denies chest pain or headache. In addition to essential hypertension, he is on a statin for hyperlipidemia. He is a prediabetic with A1c of 6.1 in 2020. He does not have a family history of premature coronary artery disease (father of colon cancer in his 50s; notably had an uncle of a CVA in his 50s). Review of Systems Status of ROS: Reports: 10 or more systems reviewed and unremarkable except as noted in History and below PFSH PFS Medical History (Updated 01/03/23 @ 10:40 by Ruba Heard MD) Essential hypertension Family history of colon cancer in father Hyperlipidemia Prediabetes Surgical History (Updated 01/03/23 @ 10:38 by Ruba Heard MD) History of bilateral inguinal hernia repair Family History (Updated 01/03/23 @ 10:44 by Ruba Heard MD) Father Colon cancer Social History (Updated 01/03/23 @ 10:44 by Ruba Heard MD) Narrative: Jerome lives with sister Daily in [place]. He has 4 adult children, all in [place]. 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 Highest level of school completed/degree received: 12th grade, no diploma Smoking Status: Never smoker Do you use any of these nicotine containing products: None How often do you have a drink containing alcohol: 2-4 times a month How many standard drinks containing alcohol do you have on a typical day: 1 or 2 AUDIT-C Alcohol total score: 2 Non-prescribed substance use: denies use Caffeine: Yes (Monster energy drink daily) service: No Meds Home Medications and Allergies Home Medications Medication Instructions Recorded Confirmed Type aspirin 81 mg chewable tablet 81 mg PO DAILY 12/30/22 12/30/22 History atorvastatin 10 mg tablet 10 mg PO DAILY 12/30/22 12/30/22 History lisinopril 20 mg tablet 20 mg PO DAILY 12/30/22 12/30/22 History Allergies Allergy/AdvReac Type Severity Reaction Status Date / Time Penicillins Allergy Verified 01/03/23 12:20 Exam Narrative: Exam Narrative: GEN: Alert and sitting comfortably in bedside chair, nontoxic in appearance HEENT: NG tube in place, EOMIs bilaterally, no scleral icterus CV: RRR, No concerning murmurs, rubs, or gallops R: LCTA bilaterally without concerning wheezing, air movement adequate Ext: wwp, no concerning edema, wearing Adilson hose Skin: No concerning skin lesions or rashes on exposed skin Neuro: No focal deficits Psych: Appropriate Const: Vital Signs, click to edit/add: Vital Signs - 24 hr 01/02/23 11:00 01/02/23 15:00 01/02/23 15:00 Temperature 98.5 F Pulse Rate [Left P ulse Oximeter] 96 Pulse Rate [Right Pulse Oximeter] 72 Respiratory Rate 16 16 16 Blood Pressure [Ri ght Arm] 140/78 H 154/76 H Pulse Oximetry 91 92 Oxygen Delivery Me thod Room Air Room Air Oxygen Flow Rate 0 01/02/23 15:00 01/02/23 19:24 01/02/23 23:00 Temperature 97.9 F Pulse Rate [Left P ulse Oximeter] Pulse Rate [Right Pulse Oximeter] 72 82 Respiratory Rate 16 16 16 Blood Pressure [Ri ght Arm] 170/99 H Pulse Oximetry 93 92 Oxygen Delivery Me thod Room Air Room Air Oxygen Flow Rate 0 01/02/23 23:00 01/03/23 03:00 01/03/23 07:00 Temperature 98.4 F 97.8 F 99.7 F H Pulse Rate [Left P ulse Oximeter] Pulse Rate [Right Pulse Oximeter] 78 70 73 Respiratory Rate 18 16 21 Blood Pressure [Ri ght Arm] 158/94 H 169/91 H 161/94 H Pulse Oximetry 92 92 92 Oxygen Delivery Me thod Room Air Room Air Room Air Oxygen Flow Rate 0 0 01/03/23 07:00 01/03/23 07:00 Temperature Pulse Rate [Left P ulse Oximeter] Pulse Rate [Right Pulse Oximeter] 73 Respiratory Rate 21 21 Blood Pressure [Ri ght Arm] Pulse Oximetry 92 Oxygen Delivery Me thod Room Air Oxygen Flow Rate Assessment and Plan Assessment and plan (1) Acute appendicitis: Status: Acute Assessment and Plan: - management per general surgery (2) Essential hypertension: Problem comment: - on lisinopril 20 mg on an outpatient, blood pressure typically runs 120/80s per chart review - add amlodipine 5 mg 01/03 Status: Acute (3) Hyperlipidemia: Problem comment: - on statin as an outpatient, continue Status: Acute (4) Prediabetes: Problem comment: - A1c 6.1 in 2019 per chart review Status: Acute Plan - addition of amlodipine as noted above, continued blood pressure monitoring
[2023-01-03 10:45] VITALS: BP 155/80; PULSE 76; RESP 20; TEMP 36.9; O2SAT 92
[2023-01-03] MEDS: AMLODIPINE 5 MG TABLET PO (13:52)
[2023-01-03] MEDS: 0.9 % SODIUM CHLORIDE 250 ml IV (13:54)
[2023-01-03 15:00] VITALS: BP 147/82; PULSE 82; RESP 15; TEMP 37.1; O2SAT 93
[2023-01-03 19:00] VITALS: BP 157/85; PULSE 79; RESP 16; TEMP 36.8; O2SAT 92
--- NOTE | 2023-01-03 19:08 | PC.NURSE ---
Nursing Care Hours: [id number] Pt this shift alert and oriented, calm and cooperative with cares. NG patent and suctioning large amounts of green/brown output, scant blood noted x1 in tubing. Supervisor Special Education instructed pt to slow down on the ice chips to help relieve pain and aid in healing. Pt verbalizes understanding and compliant. VSS, afebrile. Occasionally will get temporal temperature of 99.7 with normal oral limits. Independent ambulation in angelo with assist in detach the NG tubing. Per pt, passing gas but no BM. BS active in all quadrants. LS clear. Incisions on abdomen open to air. Patriot where wound edges meet. No warmth or draining noted.
[2023-01-03] MEDS: ENOXAPARIN 40 MG/0.4 ML INJ SUBCUT (20:38)
[2023-01-03] MEDS: ATORVASTATIN 10 MG TABLET PO (20:38)
[2023-01-03 23:00] VITALS: BP 144/87; PULSE 82; RESP 16; TEMP 36.7; O2SAT 92
[2023-01-04] MEDS: PIPERACILLIN/TAZOBACTAM 3.375 GM in 0.9 % SODIUM CHLORIDE Mini-bag 100 ML IVPB ×4 (01:27→19:21)
[2023-01-04 03:00] VITALS: BP 151/88; PULSE 78; RESP 16; TEMP 36.8; O2SAT 91
[2023-01-04 06:27] LABS: Eosinophils Absolute Auto 0.06 K/uL (0.00-0.50); Eosinophils Percent Auto 0.9 % (0.0-7.0); Hemoglobin* 13.6 gm/dL (13.5-17.5); Immature Granulocytes Abs Auto 0.12 K/uL (0.00-0.30); Immature Granulocytes Pct Auto 1.8 %; Lymphocytes Percent Auto 16.5 % (20-44); Mean Corpuscular HGB Conc 33 gm/dL (32-36); Mean Corpuscular Hemoglobin 29 pg (26-34); Mean Corpuscular Volume 88 fL (80-100); Monocytes Percent Auto 13.9 % (0.0-11.0); Neutrophils Absolute Auto 4.46 K/uL (1.7-7.0); Neutrophils Percent Auto 66.9 % (42.0-72.0); Platelet Count* 214 K/uL (140-440); Red Blood Count 4.67 m/uL (4.30-5.90); White Blood Count* 6.67 K/uL (4.50-11.00)
[2023-01-04 06:32] LABS: Slide Review Reflex No
--- NOTE | 2023-01-04 06:36 | PC.NURSE ---
Shift note: NG tube patent and draining greenish-brown gastric content. 1000ml already discarded. Independent in room except assistance to disconnect NG tube. Denied pain at this time, n/v. incisional ends are well approximated, clean and dry.
[2023-01-04 06:48] LABS: Chloride* 109 mmol/L (96-114); Potassium* 3.9 mmol/L (3.6-5.1); Sodium* 139 mmol/L (135-149)
[2023-01-04 06:51] LABS: Blood Urea Nitrogen* 23 mg/dL (7-30); Carbon Dioxide* 28 mmol/L (20-32); Creatinine* 0.9 mg/dL (0.5-1.5); Est. Creatinine Clearance* 56.71; Estimated Glomerular Filt Rate 89 ml/min
[2023-01-04 06:52] LABS: Calcium* 7.8 mg/dL (8.4-10.6); Glucose* 102 mg/dL (60-115)
[2023-01-04] MEDS: LACTATED RINGERS 1000 ML 1,000 ML 125 ML IV ×2 (07:44→14:56)
[2023-01-04] MEDS: 0.9 % SODIUM CHLORIDE 250 ml IV (07:47)
[2023-01-04 08:15] VITALS: BP 166/86; PULSE 77; RESP 18; TEMP 36.8; O2SAT 92; O2SAT 97
[2023-01-04] MEDS: AMLODIPINE 5 MG TABLET PO (09:11)
[2023-01-04] MEDS: lisinopriL 20 MG TABLET PO (09:11)
[2023-01-04] MEDS: PANTOPRAZOLE SODIUM 40 MG INJ IVP (09:11)
--- NOTE | 2023-01-04 09:37 | PM.GSPN ---
Subjective Subjective Date Seen: 01/04/23 Interval history: Patient is doing well. He had a small incontinent bowel movement in the bed. Otherwise he is not passing gas. His walking a lot. He denies abdominal pain. He has not been taking any pain medication for his abdominal pain. His NG put out 2900 mL of fluid in the last 24 hours. Exam Narrative: Exam Narrative: Abdomen is soft, continues to be mildly distended, minimal discomfort to palpation in epigastrium but nowhere else, all incisions are clean with no surrounding erythema. The suprapubic laparoscopic incision has serosanguineous drainage coming out. This incision was covered with dry gauze and tape. Const: Vital Signs, click to edit/add: Vital Signs - 24 hr 01/03/23 10:45 01/03/23 15:00 01/03/23 15:00 Temperature 98.4 F Pulse Rate [Apical ] Pulse Rate [Right Pulse Oximeter] 76 82 Respiratory Rate 20 15 15 Blood Pressure [Le ft Arm] 155/80 H Blood Pressure [Ri ght Arm] Pulse Oximetry 92 93 Oxygen Delivery Me thod Room Air Room Air Oxygen Flow Rate 01/03/23 15:00 01/03/23 19:00 01/03/23 23:00 Temperature 98.7 F 98.3 F Pulse Rate [Apical ] Pulse Rate [Right Pulse Oximeter] 82 79 Respiratory Rate 15 16 16 Blood Pressure [Le ft Arm] 147/82 H 157/85 H Blood Pressure [Ri ght Arm] Pulse Oximetry 93 92 Oxygen Delivery Ri thod Room Air Oxygen Flow Rate 01/03/23 23:00 01/03/23 23:00 01/04/23 03:00 Temperature 98.1 F 98.2 F Pulse Rate [Apical ] Pulse Rate [Right Pulse Oximeter] 82 78 Respiratory Rate 16 16 16 Blood Pressure [Le ft Arm] 144/87 H 151/88 H Blood Pressure [Ri ght Arm] Pulse Oximetry 92 91 Oxygen Delivery Me thod Room Air Room Air Room Air Oxygen Flow Rate 0 01/04/23 08:15 01/04/23 08:15 Temperature 98.3 F Pulse Rate [Apical ] 77 Pulse Rate [Right Pulse Oximeter] Respiratory Rate 18 Blood Pressure [Le ft Arm] Blood Pressure [Ri ght Arm] 166/86 H Pulse Oximetry 97 92 Oxygen Delivery Ri thod Room Air Room Air Oxygen Flow Rate Progress Note: A&P Assessment and plan (1) Acute appendicitis: Status: Acute Plan 77-year-old male s/p laparoscopic converted to open appendectomy for perforated appendicitis with continued ileus. Patient is doing well. His abdomen continues to be mildly distended but there is minimal tenderness to palpation. The abdomen is soft. His WBC is normal today. His electrolytes are normal. Patient is not taking any pain medication. Patient is walking a lot and does not require any pain medication after walking. Will continue with NG tube for now until he consistently passes gas. If he does not have return of bowel function tomorrow, I may consider obtaining a CT scan.
[2023-01-04 11:11] VITALS: BP 147/82; PULSE 77; RESP 16; TEMP 36.6; O2SAT 92
--- NOTE | 2023-01-04 12:31 | PM.IMPN1 ---
Progress Note: A&P Assessment and plan (1) S/P appendectomy: Problem details: - 01/01/23 laparoscopic converted to open appendectomy for perforated appendicitis Status: Acute (2) Postoperative ileus: Problem details: Cares per surgery Status: Acute (3) Essential hypertension: Problem details: - on lisinopril 20 mg on an outpatient, blood pressure typically runs 120/80s per chart review - Amlodipine 5 mg started, first dose was given at 2pm on 01/03/23. BP a little better today. Continue current dose of amlodipine and monitor. Status: Acute (4) Hyperlipidemia: Problem details: - on statin as an outpatient, continue Status: Acute (5) Prediabetes: Problem details: - A1c 6.1 in 2020 per chart review - Diet controlled. Currently NPO. When advancing to fulls and beyond, use diabetic diet. Status: Acute Subjective Time Seen by Provider: 08:58 Date Seen: 01/04/23 Interval history: [place] feels well. He feels hungry today, has less burping/belching, except when laying down. He has been ambulating in the halls frequently. He also notes a small amount of flatus while sitting on the toilet. Exam Narrative: Exam Narrative: General: No acute distress. Awake, alert, oriented x3. No pallor. No jaundice. NG tube in right nostril. Cardiovascular: Regular rate and rhythm. No murmurs, gallops, or rubs. Respiratory: Clear to auscultation bilaterally. No wheezes or crackles. Abdomen: Bowel sounds diminished. Soft, mildly distended. Extremities: No pedal edema. Const: Vital Signs, click to edit/add: Vital Signs - 24 hr 01/03/23 15:00 01/03/23 15:00 01/03/23 15:00 Temperature 98.7 F Pulse Rate [Apical ] Pulse Rate [Right Pulse Oximeter] 82 82 Respiratory Rate 15 15 15 Blood Pressure [Le ft Arm] 147/82 H Blood Pressure [Ri ght Arm] Pulse Oximetry 93 93 Oxygen Delivery Me thod Room Air Oxygen Flow Rate 01/03/23 19:00 01/03/23 23:00 01/03/23 23:00 Temperature 98.3 F Pulse Rate [Apical ] Pulse Rate [Right Pulse Oximeter] 79 Respiratory Rate 16 16 16 Blood Pressure [Le ft Arm] 157/85 H Blood Pressure [Ri ght Arm] Pulse Oximetry 92 Oxygen Delivery Me thod Room Air Room Air Oxygen Flow Rate 0 01/03/23 23:00 01/04/23 03:00 01/04/23 08:15 Temperature 98.1 F 98.2 F Pulse Rate [Apical ] Pulse Rate [Right Pulse Oximeter] 82 78 Respiratory Rate 16 16 Blood Pressure [Le ft Arm] 144/87 H 151/88 H Blood Pressure [Ri ght Arm] Pulse Oximetry 92 91 97 Oxygen Delivery Me thod Room Air Room Air Room Air Oxygen Flow Rate 01/04/23 08:15 01/04/23 11:11 Temperature 98.3 F 98 F Pulse Rate [Apical ] 77 77 Pulse Rate [Right Pulse Oximeter] Respiratory Rate 18 16 Blood Pressure [Le ft Arm] Blood Pressure [Ri ght Arm] 166/86 H 147/82 H Pulse Oximetry 92 92 Oxygen Delivery Me thod Room Air Room Air Oxygen Flow Rate Documenting provider has reviewed patient's vital signs: yes Labs Labs: Laboratory Results - last 24 hr 01/04/23 01/04/23 06:05 06:05 WBC 6.67 RBC 4.67 Hgb 13.6 Hct 41.0 MCV 88 MCH 29 MCHC 33 RDW Coeff of Anastasiia 12.0 Plt Count 214 Neut % (Auto) 66.9 Lymph % (Auto) 16.5 L [place] % (Auto) 13.9 H Eos % (Auto) 0.9 Baso % (Auto) 0.0 Neut # (Auto) 4.46 Lymph # (Auto) 1.10 [place] # (Auto) 0.90 Eos # (Auto) 0.06 Baso # (Auto) 0.00 Sodium 139 Potassium 3.9 Chloride 109 Carbon Dioxide 28 BUN 23 Creatinine 0.9 Estimated Creat Clear 56.71 Estimated GFR 89 Glucose 102 Calcium 7.8 L
--- NOTE | 2023-01-04 13:06 | PC.NURSE ---
Shift Summary: Patient pleasant and cooperative. Up independently, has walked in halls x3 so far today. Had small incont liquid BM this morning, around noon had another small continent BM which was more formed. Passing some gas, bowel sounds still hypoactive. NG to LIS. Rated pain at worst 3/10, denied need for medication, stated this level of pain is tolerable.
[2023-01-04 16:00] VITALS: BP 167/89; PULSE 82; RESP 18; TEMP 36.9; O2SAT 93
[2023-01-04 19:30] VITALS: BP 154/93; PULSE 78; RESP 16; TEMP 36.8; O2SAT 93
[2023-01-04] MEDS: ENOXAPARIN 40 MG/0.4 ML INJ SUBCUT (20:09)
[2023-01-04] MEDS: ATORVASTATIN 10 MG TABLET PO (20:09)
--- NOTE | 2023-01-04 22:38 | PC.NURSE ---
Shift [id number]- Patient walks halls multiple times this evening. Bowel sounds are hypoactive. He denies pain throughout shift. He has very small, loose bowel movement this evening, but denies passing gas. NG patent with dark green output.
[2023-01-04 23:00] VITALS: BP 148/87; PULSE 72; RESP 16; TEMP 36.8; O2SAT 92
[2023-01-05] VITALS (20 sets, daily range): BP systolic 134–157; BP diastolic 72–85; PULSE 68–78; RESP 12–18; TEMP 36.1–37.3; O2SAT 91–96
[2023-01-05] MEDS: LACTATED RINGERS 1000 ML 1,000 ML 125 ML IV ×3 (00:02→17:15)
[2023-01-05] MEDS: PIPERACILLIN/TAZOBACTAM 3.375 GM in 0.9 % SODIUM CHLORIDE Mini-bag 100 ML IVPB ×3 (01:17→13:48)
--- NOTE | 2023-01-05 06:57 | PC.NURSE ---
Shift note: Pt's condition has not seen any change in improvement. NG tube has drained about 500ml greenish gastric content. Surgeon ordered NG to be clamped, pass on to the AM nurse. NPO maintained except ice chips. Hypoactive bowel sound. Lungs sound clear. Minimal pain reported, no PRN medication requested.
[2023-01-05] MEDS: lisinopriL 20 MG TABLET PO (08:16)
[2023-01-05] MEDS: AMLODIPINE 5 MG TABLET PO (08:16)
--- NOTE | 2023-01-05 09:16 | PM.IMPN1 ---
Progress Note: A&P Assessment and plan (1) S/P appendectomy: Problem details: - 01/01/23 laparoscopic converted to open appendectomy for perforated appendicitis Status: Acute (2) Postoperative ileus: Problem details: - Persistent - Cares per surgery Status: Acute (3) Essential hypertension: Problem details: - on lisinopril 20 mg on an outpatient, blood pressure typically runs 120/80s per chart review - Amlodipine 5 mg started, first dose was given at 2pm on 01/03/23. BP about the same as before starting amlodipine. I think, due to ileus, he is not absorbing oral medications at this time. Continue lisinopril and amlodipine. Start enalapril IV scheduled. I think he will not need amlodipine as an outpatient. Status: Acute (4) Hyperlipidemia: Problem details: - on statin as an outpatient, continue Status: Acute (5) Prediabetes: Problem details: - A1c 6.1 in 2019 per chart review - Diet controlled. Currently NPO. When advancing to fulls and beyond, use diabetic diet. Status: Acute Subjective Time Seen by Provider: 09:06 Date Seen: 01/05/23 Interval history: Jerome had a few very small smears of stool yesterday. States his burping his better. He continues to have hunger. While I was talking with him, he was 25 minutes in to 30 minutes of having his NGT clamped after meds. He was burping and hiccuping and had to stand up because of these symptoms. Exam Narrative: Exam Narrative: General: No acute distress. Burping and hiccuping. Awake, alert, oriented. No pallor. No jaundice. NG tube in right nostril. Cardiovascular: Regular rate and rhythm. No murmurs, gallops, or rubs. Respiratory: Clear to auscultation bilaterally. No wheezes or crackles. Abdomen: Bowel sounds absent. Soft, mildly distended. Extremities: No pedal edema. Const: Vital Signs, click to edit/add: Vital Signs - 24 hr 01/04/23 11:11 01/04/23 16:00 01/04/23 16:00 Temperature 98 F 98.4 F Pulse Rate [Apical ] 77 82 Respiratory Rate 16 18 Blood Pressure [Le ft Arm] 167/89 H Blood Pressure [Ri ght Arm] 147/82 H Pulse Oximetry 92 93 93 Oxygen Delivery Me thod Room Air Room Air Room Air Oxygen Flow Rate 01/04/23 19:30 01/04/23 23:00 01/04/23 23:00 Temperature 98.2 F 98.2 F Pulse Rate [Apical ] 78 72 Respiratory Rate 16 16 16 Blood Pressure [Le ft Arm] 154/93 H 148/87 H Blood Pressure [Ri ght Arm] Pulse Oximetry 93 92 92 Oxygen Delivery Me thod Room Air Room Air Room Air Oxygen Flow Rate 0 0 01/05/23 03:00 Temperature 98.1 F Pulse Rate [Apical ] 73 Respiratory Rate 16 Blood Pressure [Le ft Arm] 146/82 H Blood Pressure [Ri ght Arm] Pulse Oximetry 92 Oxygen Delivery Me thod Room Air Oxygen Flow Rate 0 Documenting provider has reviewed patient's vital signs: yes
--- NOTE | 2023-01-05 09:20 | CRLHL7_ITS ---
For Patients: As a result of the Century Cures Act, medical imaging exams and procedure reports are released immediately into your electronic medical record. You may view this report before your referring provider. If you have questions, please contact your health care provider. HISTORY: Persistent ileus. Six days status post appendectomy. TECHNIQUE: Intravenous contrast and oral contrast enhanced CT of the abdomen and pelvis. 91 mL Isovue-370 intravenous contrast administered. COMPARISON: 12/30/2022. FINDINGS: Patient has undergone an interval appendectomy. There is mild residual inflammatory change within the right lower quadrant. There is no abscess. The small locules of gas on image #106 of series 2 are likely within the colonic lumen. There is no free intraperitoneal air. A nasogastric tube is present terminating within the stomach. Contrast material is present within the proximal through mid small bowel. The proximal through mid small bowel is dilated. The distal small bowel is nondilated. There is an area of relative caliber change within the left pelvis around image #115 of series 2 which likely indicates a site of partial obstruction. There is no bowel wall pneumatosis. - No focal liver lesion. No biliary ductal dilatation. Gallbladder does not appear excessively distended. Calcified splenic granulomata. Adrenal glands normal. No focal pancreatic abnormality. Symmetric nephrograms. No renal mass or hydronephrosis. Urinary bladder mildly distended. Prostate mildly prominent in size. Pelvic calcifications likely represent phleboliths. Small fat containing inguinal hernias. - Atherosclerotic changes of the abdominal aorta without aneurysm. - Calcified right hilar and subcarinal lymph nodes related prior granulomatous infection. Trace amount of right pleural fluid. Mild atelectasis within the lower lung zones. - Degenerative changes of the spine. No acute fractures. Degenerative changes of the sacroiliac joints and hips. IMPRESSION: 1. Postsurgical changes of appendectomy. Mild residual inflammatory change within the right lower quadrant. No abscess. No free air. 2. Dilatation of proximal through mid small bowel with area of relative caliber change within the left pelvis likely indicating site of partial obstruction. 3. Areas of atelectasis within the lung bases. Trace right pleural effusion. 4. Findings of prior granulomatous disease. Please note that all CT scans at this facility use dose modulation, iterative reconstruction, and/or weight-based dosing when appropriate to reduce radiation dose to as low as reasonably achievable. Dictated by Srikanth Tabares MD @ 01/05/2023 2:17:50 PM (Electronically Signed)
--- NOTE | 2023-01-05 09:53 | P.GSPN_ITS ---
Subjective Subjective Date Seen: 01/05/23 Interval history: patient denies abdominal pain but also denies passing gas. He had 2 small bowel movements. His NG had less output and was only about 500 yesterday and 500 since midnight. Exam Narrative: Exam Narrative: Abdomen is soft, mildly distended, not tender to palpation. Laparoscopic incisions and right lower quadrant incisions are without erythema. No significant change in clinical exam. Const: Vital Signs, click to edit/add: Vital Signs - 24 hr 01/04/23 11:11 01/04/23 16:00 01/04/23 16:00 Temperature 98 F 98.4 F Pulse Rate [Apical ] 77 82 Respiratory Rate 16 18 Blood Pressure [Le ft Arm] 167/89 H Blood Pressure [Ri ght Arm] 147/82 H Pulse Oximetry 92 93 93 Oxygen Delivery Me thod Room Air Room Air Room Air Oxygen Flow Rate 01/04/23 19:30 01/04/23 23:00 01/04/23 23:00 Temperature 98.2 F 98.2 F Pulse Rate [Apical ] 78 72 Respiratory Rate 16 16 16 Blood Pressure [Le ft Arm] 154/93 H 148/87 H Blood Pressure [Ri ght Arm] Pulse Oximetry 93 92 92 Oxygen Delivery Me thod Room Air Room Air Room Air Oxygen Flow Rate 0 0 01/05/23 03:00 Temperature 98.1 F Pulse Rate [Apical ] 73 Respiratory Rate 16 Blood Pressure [Le ft Arm] 146/82 H Blood Pressure [Ri ght Arm] Pulse Oximetry 92 Oxygen Delivery Me thod Room Air Oxygen Flow Rate 0 Progress Note: A&P Assessment and plan (1) Postoperative ileus: Problem details: - Persistent - Cares per surgery Status: Acute Plan 77-year-old male s/p laparoscopic converted to open appendectomy POD 6. Patient continues to have prolonged postoperative ileus. He is on IV antibiotics. His NG tube output is slightly less today when compared to previous 24 hours. His abdominal exam is not significantly changed. His electrolytes were checked 2 days ago and were normal. I discussed with the patient that we will obtain a CT scan today looking for an intra-abdominal ab scess or other causes for his prolonged postoperative ileus.
[2023-01-05] MEDS: PANTOPRAZOLE SODIUM 40 MG INJ IVP (11:49)
[2023-01-05] MEDS: ENALAPRILAT 1.25 MG/ML IVP (11:49)
--- NOTE | 2023-01-05 15:30 | ONC.NURNOTE ---
Pleasant alert and oriented. vs wnl. ls reg. heart reg. no le edema. denies pain or nausea. limiting ice chips for comfort. did not like the spray. steady when up. up in angelo x3. burping but states no flatus. small bm last mireya. states feels like having a bm. but not happening. abd sl distended and sl hard. hypo bs x4 quad. no flatus today. pt given 500 cc prep via ng for CT. radha well. pt put out 200cc on return from xray. NG output 200cc this am. dressing changed this am by surgeon.
--- NOTE | 2023-01-05 17:26 | PC.NURSE ---
[id number]- Patient denies pain, nausea or passing flatus. NG patent. He is taken to sx with Dr. Martinez.
[2023-01-05] MEDS: CEFAZOLIN 2 GM in 0.9 % SODIUM CHLORIDE Mini-bag 100 ML IVPB (17:30)
--- NOTE | 2023-01-05 18:08 | W.PM.NB ---
Nerve Block Nerve Block Time Seen by Provider: 17:30 Date Seen: 01/05/23 Type of block requested by surgeon for post-operative analgesia: TAP (15ml 0.25 Bupivicaine and 5ml Exparel per side) Side: bilateral Time out performed: Yes Verification of patient name: Yes Verification of date of : Yes Site marking: not applicable Name of person performing procedure: Juan Ramon Vela Continuous monitoring Was continuous monitoring of O2 sat, B/P, cafeteria monitor, recorded every 15 minutes?: Yes Procedure Checklist: sterile prep, needles and gloves Ultrasound guided. Images saved: Yes Medications given in 5ml increments after negative aspiration: Marcaine %: 0.25 mL: 15 Needle gauge: 20 and Exparel mL: 5 Needle gauge: 20 Patient tolerated procedure well: Yes
--- NOTE | 2023-01-05 18:45 | PM.GSPRC ---
Operative Note Date of procedure: 01/05/23 Pre-op diagnosis: 1. s/p laparoscopic converted to open appendectomy 6 days ago. 2. Non resolving postoperative ileus. Post-op diagnosis: 1. s/p open appendectomy. 2. 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 Type of Procedure: 1. Exploratory laparotomy. 2. Lysis of adhesions. Indications: 77-year-old male underwent laparoscopic converted to open appendectomy for perforated appendicitis 6 days ago. Patient had postoperative ileus. An NG tube was placed due to vomiting and persistent hiccuping. Patient's abdomen was mildly distended however was not tender. NG tube output continued to be green and bilious. Patient had smears of bowel movements in the last couple days with no flatus. Due to continued absence of return of bowel function, an abdominal CT was obtained that showed dilated proximal small bowel with decompressed distal small bowel. There was an area of change in caliber. No intra-abdominal abscess was noted near the appendectomy site. Given patient's clinical exam and his persistent postoperative ileus, an exploratory laparotomy was recommended. The procedure was discussed in detail. The risks associated procedure including infection, bleeding, future small-bowel obstructions, and postoperative hernia were all discussed with the patient, and he agreed to proceed. Procedure Description: After discussing the risks and benefits of the procedure, the patient signed informed consent.? The operative site was marked and the patient was brought to the operating room and placed on the operating table in supine position.? Care was taken to pad the patient's pressure points.?? The patient was then intubated by anesthesia.? Bilateral TAP blocks were administered by Anesthesia.? The operative site was then prepped and draped in the usual sterile fashion.? A time-out was then performed. Patient's right lower quadrant and suprapubic incisions were covered with Tegaderm. A midline laparotomy incision was made with a scalpel around the umbilicus in the mid abdomen. Subcutaneous fat was divided with cautery down to the anterior fascia. The anterior fascia was grasped with Jonatan clamps and incised with Metzenbaum scissors. The posterior sheath and peritoneum were also grasped with DeBakey clamp and the abdomen was entered with Metzenbaum scissors. The anterior abdominal wall was explored with a finger and no adhesions were noted to the abdominal wall. The laparotomy incision was then extended with cautery. An Luiz retractor was placed into the abdomen. Small amount of clear yellow ascites was noted in the abdomen. The proximal bowel was eviscerated and was dilated. The small bowel distally appeared to be adherent in the right lower quadrant. Those adhesions were broken down bluntly and the distal small bowel was then eviscerated. The caliber of the distal small bowel was normal and inflammation of the small bowel mesentery at the mesenteric border of the small bowel was noted. Two separate areas of inflammation were noted and that looked like a kissing inflammatory adhesion. Both segments of the small intestine were carefully examined to evaluate for small bowel injury and none was found. The appendectomy site was then visualized in the cecum and some inflammation and postoperative ecchymosis was noted but no areas of necrosis or stool spillage. The entire small bowel was then examined from the terminal ileum to the ligament of Treitz. There was a gradual transition in the caliber of the small intestine in the mid small intestine with proximal small intestine being fairly dilated and fluid-filled. The small bowel was then carefully placed into the abdomen. The abdomen was irrigated with warm normal saline. The fascia of the midline laparotomy incision was then closed with 2 running 0-0 Maxon sutures. The surgical incision was then irrigated with normal saline again. The skin was closed with tim. Sterile dressings were placed over the incisions. ? The patient was then woken and transported to the recovery area in stable condition. ? The patient tolerated the procedure well. Findings: An inflammatory adhesion of the small bowel mesentery in a short segment of small bowel most likely adherent to the right lower quadrant surgical site. Anesthesia: GETA Surgeon: Ivan Martinez MD Estimated blood loss (mL): 10 Condition: stable Disposition: PACU
--- NOTE | 2023-01-05 18:47 | P.ANES_ITS ---
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
[2023-01-05] MEDS: fentaNYL 100 MCG/2 ML inj 50 MCG IVP (18:56)
--- NOTE | 2023-01-05 19:26 | SUR.PHASEI ---
patient met discharge criteria per anesthesia
[2023-01-05] MEDS: HYDROmorphone 0.5 mg/0.5 ml inj IVP (20:06)
[2023-01-06] VITALS (8 sets, daily range): BP systolic 126–151; BP diastolic 69–77; PULSE 75–96; RESP 16–20; TEMP 36.5–36.9; O2SAT 91–96; BMI 29.8
[2023-01-06] MEDS: PIPERACILLIN/TAZOBACTAM 3.375 GM in 0.9 % SODIUM CHLORIDE Mini-bag 100 ML IVPB ×4 (02:11→20:26)
[2023-01-06] MEDS: 0.9 % SODIUM CHLORIDE 250 ml IV (02:12)
[2023-01-06] MEDS: LACTATED RINGERS 1000 ML 1,000 ML 125 ML IV ×2 (04:03→12:39)
--- NOTE | 2023-01-06 06:41 | PC.NURSE ---
Shift note: Pt received from the theater at 1915 on a bed. Pt came with IV lactate ringers 1000ml and SCD. Dressing appeared clean and dry. Pt was alert and conscious on arrival. Vital signs stable as per chart. No bowel sound, able to lift both upper and lower extremities. Patient rated pain level at 5 and PRN Deluded given. NG was at 59cm and connected to LIS. Gastric content was thick and therefore irrigation of 120ml of sterile water done. Total NG tube output for the shift was 350ml. New collecting container inserted because the old one was full. Ice chips given, ice pack applied to the incisional site. Pt appears to tolerate pain very well.
[2023-01-06 07:16] LABS: Albumin* 2.6 g/dL (3.3-5.0); Chloride* 108 mmol/L (96-114); Sodium* 137 mmol/L (135-149)
[2023-01-06 07:17] LABS: Potassium* 4.2 mmol/L (3.6-5.1)
[2023-01-06 07:19] LABS: Alkaline Phosphatase* 64 U/L (40-150); Aspartate Amino Transferase* 35 U/L (12-35); Bilirubin Total* 0.6 mg/dL (0.1-1.5); Blood Urea Nitrogen* 18 mg/dL (7-30); Carbon Dioxide* 28 mmol/L (20-32); Creatinine* 0.9 mg/dL (0.5-1.5); Est. Creatinine Clearance* 56.71; Estimated Glomerular Filt Rate 89 ml/min; Glucose* 96 mg/dL (60-115); Total Protein* 5.2 g/dL (6.0-8.3)
[2023-01-06 07:20] LABS: Alanine Aminotransferase* 40 U/L (4-50); Calcium* 7.5 mg/dL (8.4-10.6); Magnesium* 2.1 mg/dL (1.5-2.6); Phosphorus* 3.9 mg/dL (2.5-4.5)
--- NOTE | 2023-01-06 08:16 | PM.GSPN ---
Subjective Subjective Date Seen: 01/06/23 Interval history: Patient did okay last night after coming back from the operating room. He does have incisional pain, but this is well controlled. He has had no further burping. No passage of gas overnight. NG tube remains in place. Afebrile with no acute concerns. Exam Narrative: Exam Narrative: General: Alert and oriented, no acute distress HEENT: Right nares NG tube in place. Thick dark green bilious output Abdomen: Moderate distention, appropriately tender over incision sites. Soft with dressings in place clean/dry/intact. Const: Vital Signs, click to edit/add: Vital Signs - 24 hr 01/05/23 11:40 01/05/23 15:13 01/05/23 15:13 Temperature 97 F L 98.7 F Pulse Rate Pulse Rate [Apical ] 74 78 Pulse Rate [Right Pulse Oximeter] Respiratory Rate 14 18 Blood Pressure Blood Pressure [Le ft Arm] 139/74 144/72 H Pulse Oximetry 95 94 94 Oxygen Delivery Me thod Room Air Room Air Room Air Oxygen Flow Rate 01/05/23 18:41 01/05/23 18:55 01/05/23 19:05 Temperature 99.2 F 99.2 F 98.9 F Pulse Rate 78 74 72 Pulse Rate [Apical ] Pulse Rate [Right Pulse Oximeter] Respiratory Rate 12 17 15 Blood Pressure 154/78 H 150/77 H 148/74 H Blood Pressure [Le ft Arm] Pulse Oximetry 93 91 94 Oxygen Delivery Me thod Oxygen Flow Rate 01/05/23 18:45 01/05/23 18:50 01/05/23 19:00 Temperature 99.2 F 99.2 F 99.2 F Pulse Rate 77 75 72 Pulse Rate [Apical ] Pulse Rate [Right Pulse Oximeter] Respiratory Rate 15 17 14 Blood Pressure 148/85 H 152/81 H 151/76 H Blood Pressure [Le ft Arm] Pulse Oximetry 92 92 93 Oxygen Delivery Me thod Oxygen Flow Rate 01/05/23 19:10 01/05/23 19:15 01/05/23 20:30 Temperature 98.9 F 97.9 F 97.7 F Pulse Rate 76 Pulse Rate [Apical ] Pulse Rate [Right Pulse Oximeter] 75 68 Respiratory Rate 16 16 16 Blood Pressure 147/73 H Blood Pressure [Le ft Arm] 154/80 H 136/75 Pulse Oximetry 94 96 95 Oxygen Delivery Me thod Nasal Cannula Nasal Cannula Oxygen Flow Rate 2 2 01/05/23 19:30 01/05/23 19:45 01/05/23 20:00 Temperature 97.5 F L 97.7 F 97.6 F Pulse Rate Pulse Rate [Apical ] Pulse Rate [Right Pulse Oximeter] 76 74 72 Respiratory Rate 16 16 16 Blood Pressure Blood Pressure [Le ft Arm] 149/81 H 155/80 H 150/81 H Pulse Oximetry 96 96 96 Oxygen Delivery Me thod Nasal Cannula Nasal Cannula Nasal Cannula Oxygen Flow Rate 2 2 2 01/05/23 20:15 01/05/23 19:00 01/05/23 21:00 Temperature 97.8 F 97.9 F 97.7 F Pulse Rate Pulse Rate [Apical ] Pulse Rate [Right Pulse Oximeter] 69 75 71 Respiratory Rate 16 16 16 Blood Pressure Blood Pressure [Le ft Arm] 141/76 H 154/80 H 138/74 Pulse Oximetry 96 96 96 Oxygen Delivery Me thod Nasal Cannula Nasal Cannula Nasal Cannula Oxygen Flow Rate 2 2 2 01/05/23 22:00 01/05/23 23:00 01/05/23 23:00 Temperature 97.5 F L 97.8 F Pulse Rate Pulse Rate [Apical ] Pulse Rate [Right Pulse Oximeter] 73 73 Respiratory Rate 16 16 16 Blood Pressure Blood Pressure [Le ft Arm] 138/77 134/74 Pulse Oximetry 96 96 96 Oxygen Delivery Me thod Nasal Cannula Nasal Cannula Nasal Cannula Oxygen Flow Rate 2 2 2 01/05/23 23:00 01/06/23 00:00 01/06/23 03:00 Temperature 97.8 F 97.7 F 97.7 F Pulse Rate Pulse Rate [Apical ] Pulse Rate [Right Pulse Oximeter] 73 76 76 Respiratory Rate 16 16 16 Blood Pressure Blood Pressure [Le ft Arm] 134/74 131/69 127/69 Pulse Oximetry 96 96 96 Oxygen Delivery Me thod Nasal Cannula Nasal Cannula Nasal Cannula Oxygen Flow Rate 2 2 2 Labs/Imaging Labs Labs: BMP and CBC reviewed. Albumin is low. Imaging Imaging: No new imaging. Progress Note: A&P Assessment and plan (1) Postoperative ileus: Problem details: - Persistent - Cares per surgery Status: Acute Plan 77-year-old male s/p laparoscopic converted to open appendectomy POD 7, now postop day 1 exploratory laparotomy for prolonged postoperative ileus. Intraoperative findings of inflammatory adhesions of small bowel in the right lower quadrant. Please see operative note by Dr. Martinez. No evidence of abscess, small bowel injury or leak. NG tube remains to low intermittent suction with dark bilious output. Given patient has been NPO for at least 7 days, will have hospital start TPN. Continue with expected postoperative cares. -continue IV antibiotics -NG tube low intermittent suction, okay for sips and ice chips -encourage ambulation. -SCDs and Lovenox for DVT prophylaxis -hospitalist management of TPN and hypertension
[2023-01-06] MEDS: PANTOPRAZOLE SODIUM 40 MG INJ IVP (09:26)
--- NOTE | 2023-01-06 09:32 | PM.IMPN1 ---
Progress Note: A&P Assessment and plan (1) S/P appendectomy: Problem details: - 01/01/23 laparoscopic converted to open appendectomy for perforated appendicitis - 01/05/23 exploratory laparotomy with lysis of adhesions Status: Acute (2) Postoperative ileus: Problem details: - Persistent, lysis of adhesions last night NG tube remains in place to low intermittent suction - Cares per surgery Status: Acute (3) Essential hypertension: Problem details: - on lisinopril 20 mg on an outpatient, blood pressure typically runs 120/80s per chart review - scheduled IV enalapril was started yesterday which he has responded to nicely. Blood pressures are well controlled. I think blood pressure elevations seen earlier this hospital stay were likely results of poor GI absorption of oral blood pressure medications. Upon discharge he will likely only need his usual lisinopril and not any a additional antihypertensives. Status: Acute (4) Hyperlipidemia: Problem details: - on statin as an outpatient, continue Status: Acute (5) Prediabetes: Problem details: - A1c 6.1 in 2019 per chart review - Diet controlled. Currently NPO. When advancing to fulls and beyond, use diabetic diet. Status: Acute Plan - For nutrition Dr. Bello would like to start TPN. I have ordered a PICC line and will help order and adjust TPN until he is able to advance his diet. Since he is diabetic, he will need some insulin with the TPN. - VTE prophylaxis: He is currently on Adilson's toes for prophylaxis. He is ambulating frequently. He was getting enoxaparin, but this was held for surgery. Restart this tonight. Subjective Time Seen by Provider: 08:59 Date Seen: 01/06/23 Interval history: Jerome had an exploratory laparotomy with lysis of adhesions last night for postoperative inflammatory adhesions causing SBO. He is feeling better today and notices that there is a lot less distension and burping. Exam Narrative: Exam Narrative: General: No acute distress. Awake, alert, oriented x3. No pallor. No jaundice. NG tube in right nares. Oropharynx: Clear. Mucous membranes moist. Cardiovascular: Regular rate and rhythm. No murmurs, gallops, or rubs. Respiratory: Clear to auscultation bilaterally. No wheezes or crackles. Abdomen: Some distention, bandages are clean, dry, and intact. Extremities: No pedal edema. Const: Vital Signs, click to edit/add: Vital Signs - 24 hr 01/05/23 11:40 01/05/23 15:13 01/05/23 15:13 Temperature 97 F L 98.7 F Pulse Rate Pulse Rate [Apical ] 74 78 Pulse Rate [Right Pulse Oximeter] Respiratory Rate 14 18 Blood Pressure Blood Pressure [Le ft Arm] 139/74 144/72 H Pulse Oximetry 95 94 94 Oxygen Delivery Me thod Room Air Room Air Room Air Oxygen Flow Rate 01/05/23 18:41 01/05/23 18:55 01/05/23 19:05 Temperature 99.2 F 99.2 F 98.9 F Pulse Rate 78 74 72 Pulse Rate [Apical ] Pulse Rate [Right Pulse Oximeter] Respiratory Rate 12 17 15 Blood Pressure 154/78 H 150/77 H 148/74 H Blood Pressure [Le ft Arm] Pulse Oximetry 93 91 94 Oxygen Delivery Me thod Oxygen Flow Rate 01/05/23 18:45 01/05/23 18:50 01/05/23 19:00 Temperature 99.2 F 99.2 F 99.2 F Pulse Rate 77 75 72 Pulse Rate [Apical ] Pulse Rate [Right Pulse Oximeter] Respiratory Rate 15 17 14 Blood Pressure 148/85 H 152/81 H 151/76 H Blood Pressure [Le ft Arm] Pulse Oximetry 92 92 93 Oxygen Delivery Me thod Oxygen Flow Rate 01/05/23 19:10 01/05/23 19:15 01/05/23 20:30 Temperature 98.9 F 97.9 F 97.7 F Pulse Rate 76 Pulse Rate [Apical ] Pulse Rate [Right Pulse Oximeter] 75 68 Respiratory Rate 16 16 16 Blood Pressure 147/73 H Blood Pressure [Le ft Arm] 154/80 H 136/75 Pulse Oximetry 94 96 95 Oxygen Delivery Me thod Nasal Cannula Nasal Cannula Oxygen Flow Rate 2 2 01/05/23 19:30 01/05/23 19:45 01/05/23 20:00 Temperature 97.5 F L 97.7 F 97.6 F Pulse Rate Pulse Rate [Apical ] Pulse Rate [Right Pulse Oximeter] 76 74 72 Respiratory Rate 16 16 16 Blood Pressure Blood Pressure [Le ft Arm] 149/81 H 155/80 H 150/81 H Pulse Oximetry 96 96 96 Oxygen Delivery Me thod Nasal Cannula Nasal Cannula Nasal Cannula Oxygen Flow Rate 2 2 2 01/05/23 20:15 01/05/23 19:00 01/05/23 21:00 Temperature 97.8 F 97.9 F 97.7 F Pulse Rate Pulse Rate [Apical ] Pulse Rate [Right Pulse Oximeter] 69 75 71 Respiratory Rate 16 16 16 Blood Pressure Blood Pressure [Le ft Arm] 141/76 H 154/80 H 138/74 Pulse Oximetry 96 96 96 Oxygen Delivery Me thod Nasal Cannula Nasal Cannula Nasal Cannula Oxygen Flow Rate 2 2 2 01/05/23 22:00 01/05/23 23:00 01/05/23 23:00 Temperature 97.5 F L 97.8 F Pulse Rate Pulse Rate [Apical ] Pulse Rate [Right Pulse Oximeter] 73 73 Respiratory Rate 16 16 16 Blood Pressure Blood Pressure [Le ft Arm] 138/77 134/74 Pulse Oximetry 96 96 96 Oxygen Delivery Me thod Nasal Cannula Nasal Cannula Nasal Cannula Oxygen Flow Rate 2 2 2 01/05/23 23:00 01/06/23 00:00 01/06/23 03:00 Temperature 97.8 F 97.7 F 97.7 F Pulse Rate Pulse Rate [Apical ] Pulse Rate [Right Pulse Oximeter] 73 76 76 Respiratory Rate 16 16 16 Blood Pressure Blood Pressure [Le ft Arm] 134/74 131/69 127/69 Pulse Oximetry 96 96 96 Oxygen Delivery Me thod Nasal Cannula Nasal Cannula Nasal Cannula Oxygen Flow Rate 2 2 2 Labs Labs: Laboratory Results - last 24 hr 01/06/23 01/06/23 06:38 06:38 Sodium Cancelled 137 Potassium Cancelled 4.2 Chloride Cancelled 108 Carbon Dioxide Cancelled 28 BUN Cancelled 18 Creatinine Cancelled 0.9 Estimated Creat Clear Cancelled 56.71 Estimated GFR Cancelled 89 Glucose Cancelled 96 Calcium Cancelled 7.5 L Phosphorus 3.9 Magnesium 2.1 Total Bilirubin 0.6 AST 35 ALT 40 Alkaline Phosphatase 64 Total Protein 5.2 L Albumin 2.6 L
--- NOTE | 2023-01-06 11:00 | PM.GSPN ---
Subjective Subjective Date Seen: 01/06/23 Interval history: Patient is doing well. He complains of minimal abdominal pain. He urinated, ambulated. He denies any nausea or vomiting. Exam Narrative: Exam Narrative: Abdomen is soft, not distended, tender to palpation in the right mid abdomen and epigastrium. Surgical incision is covered with clean dressing. Const: Vital Signs, click to edit/add: Vital Signs - 24 hr 01/05/23 11:40 01/05/23 15:13 01/05/23 15:13 Temperature 97 F L 98.7 F Pulse Rate Pulse Rate [Apical ] 74 78 Pulse Rate [Right Pulse Oximeter] Respiratory Rate 14 18 Blood Pressure Blood Pressure [Le ft Arm] 139/74 144/72 H Pulse Oximetry 95 94 94 Oxygen Delivery Me thod Room Air Room Air Room Air Oxygen Flow Rate 01/05/23 18:41 01/05/23 18:55 01/05/23 19:05 Temperature 99.2 F 99.2 F 98.9 F Pulse Rate 78 74 72 Pulse Rate [Apical ] Pulse Rate [Right Pulse Oximeter] Respiratory Rate 12 17 15 Blood Pressure 154/78 H 150/77 H 148/74 H Blood Pressure [Le ft Arm] Pulse Oximetry 93 91 94 Oxygen Delivery Me thod Oxygen Flow Rate 01/05/23 18:45 01/05/23 18:50 01/05/23 19:00 Temperature 99.2 F 99.2 F 99.2 F Pulse Rate 77 75 72 Pulse Rate [Apical ] Pulse Rate [Right Pulse Oximeter] Respiratory Rate 15 17 14 Blood Pressure 148/85 H 152/81 H 151/76 H Blood Pressure [Le ft Arm] Pulse Oximetry 92 92 93 Oxygen Delivery Me thod Oxygen Flow Rate 01/05/23 19:10 01/05/23 19:15 01/05/23 20:30 Temperature 98.9 F 97.9 F 97.7 F Pulse Rate 76 Pulse Rate [Apical ] Pulse Rate [Right Pulse Oximeter] 75 68 Respiratory Rate 16 16 16 Blood Pressure 147/73 H Blood Pressure [Le ft Arm] 154/80 H 136/75 Pulse Oximetry 94 96 95 Oxygen Delivery Me thod Nasal Cannula Nasal Cannula Oxygen Flow Rate 2 2 01/05/23 19:30 01/05/23 19:45 01/05/23 20:00 Temperature 97.5 F L 97.7 F 97.6 F Pulse Rate Pulse Rate [Apical ] Pulse Rate [Right Pulse Oximeter] 76 74 72 Respiratory Rate 16 16 16 Blood Pressure Blood Pressure [Le ft Arm] 149/81 H 155/80 H 150/81 H Pulse Oximetry 96 96 96 Oxygen Delivery Me thod Nasal Cannula Nasal Cannula Nasal Cannula Oxygen Flow Rate 2 2 2 01/05/23 20:15 01/05/23 19:00 01/05/23 21:00 Temperature 97.8 F 97.9 F 97.7 F Pulse Rate Pulse Rate [Apical ] Pulse Rate [Right Pulse Oximeter] 69 75 71 Respiratory Rate 16 16 16 Blood Pressure Blood Pressure [Le ft Arm] 141/76 H 154/80 H 138/74 Pulse Oximetry 96 96 96 Oxygen Delivery Me thod Nasal Cannula Nasal Cannula Nasal Cannula Oxygen Flow Rate 2 2 2 01/05/23 22:00 01/05/23 23:00 01/05/23 23:00 Temperature 97.5 F L 97.8 F Pulse Rate Pulse Rate [Apical ] Pulse Rate [Right Pulse Oximeter] 73 73 Respiratory Rate 16 16 16 Blood Pressure Blood Pressure [Le ft Arm] 138/77 134/74 Pulse Oximetry 96 96 96 Oxygen Delivery Me thod Nasal Cannula Nasal Cannula Nasal Cannula Oxygen Flow Rate 2 2 2 01/05/23 23:00 01/06/23 00:00 01/06/23 03:00 Temperature 97.8 F 97.7 F 97.7 F Pulse Rate Pulse Rate [Apical ] Pulse Rate [Right Pulse Oximeter] 73 76 76 Respiratory Rate 16 16 16 Blood Pressure Blood Pressure [Le ft Arm] 134/74 131/69 127/69 Pulse Oximetry 96 96 96 Oxygen Delivery Me thod Nasal Cannula Nasal Cannula Nasal Cannula Oxygen Flow Rate 2 2 2 01/06/23 07:00 01/06/23 07:00 Temperature 98.3 F Pulse Rate Pulse Rate [Apical ] Pulse Rate [Right Pulse Oximeter] 77 Respiratory Rate 16 16 Blood Pressure Blood Pressure [Le ft Arm] 130/77 Pulse Oximetry 95 95 Oxygen Delivery Me thod Room Air Room Air Oxygen Flow Rate Progress Note: A&P Assessment and plan (1) S/P exploratory laparotomy: Status: Acute Plan 77-year-old male s/p exploratory laparotomy POD 1. Patient is doing well. He has NG tube had approximately 500 mL out yesterday and 300 mL since midnight. Patient's pain is controlled. Will wait for return of bowel function. Patient will continue to be NPO.
[2023-01-06] MEDS: LACTATED RINGERS 1000 ML 1,000 ML 100 ML IV (13:44)
--- NOTE | 2023-01-06 15:20 | PC.NURSE ---
Patient is A&Ox3. Vitally stable and reporting pain 3/10 at incision site, declined pain medication. Abd dressing clean, dry, and intact. Bowel sounds hypoactive on auscultation. Patient denied flatus but stated that when ambulating feels ?an urge?, but is unsuccessful. Per patient hiccups have resolved. Fine crackles heard on right posterior lung, reinforced importance of IS and ambulation. Independent in room and hallway, tolerating well. Continues to have dark green gastric content per NG. Awaiting PICC placement to begin TPN.
--- NOTE | 2023-01-06 16:00 | CRLHL7_ITS ---
For Patients: As a result of the Century Cures Act, medical imaging exams and procedure reports are released immediately into your electronic medical record. You may view this report before your referring provider. If you have questions, please contact your health care provider. Indication: PICC placement Technique: Grayscale ultrasound images of the brachial vein and internal jugular vein on the left performed. IMPRESSION: Sonographic guidance for left arm PICC line placement. Dictated by Bairon Copeland MD @ 01/07/2023 12:30:55 PM (Electronically Signed)
[2023-01-06 16:16] LABS: INR 1.24 (0.91-1.10); Prothrombin Time 16.3 Seconds
[2023-01-06 16:19] LABS: Basophils Absolute Auto 0.01 K/uL (0.00-0.30); Basophils Percent Auto 0.1 % (0.0-3.0); Eosinophils Absolute Auto 0.04 K/uL (0.00-0.50); Eosinophils Percent Auto 0.4 % (0.0-7.0); Hematocrit 42.1 % (37.0-53.0); Hemoglobin* 13.9 gm/dL (13.5-17.5); Immature Granulocytes Abs Auto 0.26 K/uL (0.00-0.30); Immature Granulocytes Pct Auto 2.4 %; Lymphocytes Percent Auto 12.5 % (20-44); Mean Corpuscular HGB Conc 33 gm/dL (32-36); Mean Corpuscular Hemoglobin 29 pg (26-34); Mean Corpuscular Volume 88 fL (80-100); Monocytes Percent Auto 9.6 % (0.0-11.0); Platelet Count* 234 K/uL (140-440); RDW Coefficient of Variation % 12.4 % (11.5-15.5); Red Blood Count 4.81 m/uL (4.30-5.90); White Blood Count* 10.68 K/uL (4.50-11.00)
[2023-01-06 16:22] LABS: Slide Review Reflex No
[2023-01-06 16:25] LABS: Albumin* 2.6 g/dL (3.3-5.0); Chloride* 105 mmol/L (96-114); Potassium* 4.3 mmol/L (3.6-5.1); Sodium* 137 mmol/L (135-149)
[2023-01-06 16:27] LABS: Bilirubin Total* 0.8 mg/dL (0.1-1.5); Carbon Dioxide* 27 mmol/L (20-32); Creatinine* 0.9 mg/dL (0.5-1.5); Est. Creatinine Clearance* 56.71; Estimated Glomerular Filt Rate 89 ml/min
[2023-01-06 16:28] LABS: Alanine Aminotransferase* 41 U/L (4-50); Alkaline Phosphatase* 67 U/L (40-150); Aspartate Amino Transferase* 40 U/L (12-35); Blood Urea Nitrogen* 17 mg/dL (7-30); Calcium* 7.6 mg/dL (8.4-10.6); Glucose* 96 mg/dL (60-115); Magnesium* 2.1 mg/dL (1.5-2.6); Phosphorus* 3.1 mg/dL (2.5-4.5); Triglycerides* 141 mg/dL (40-149)
--- NOTE | 2023-01-06 17:00 | CRLHL7_ITS ---
For Patients: As a result of the Century Cures Act, medical imaging exams and procedure reports are released immediately into your electronic medical record. You may view this report before your referring provider. If you have questions, please contact your health care provider. Indication: PICC placement Technique: Chest 2 view Comparison: None Findings/Impression: Cardiovascular and mediastinum: Heart size and vasculature are normal in caliber and appearance. Mediastinum is within normal limits. No upper extremity PICC or central venous catheter visualized. Lungs and pleural space: Senescent changes of the lung parenchyma. No focal consolidation, pleural effusion, or pneumothorax. Bones and soft tissues: Left axillary surgical clips. Multiple old left-sided rib fractures. Osteopenia. Accentuated thoracic kyphosis. Near vertebral plana of a mid thoracic vertebral body. Dictated by Oliver Mclaughlin MD @ 01/06/2023 7:59:37 PM (Electronically Signed)
--- NOTE | 2023-01-06 18:30 | PC.NURSE ---
Pt up independently. Walking halls x 5 during day shift. Rates surgical site on medial abdomen 01/10, denies need for medication. Dark green gastic content via NG tube which measures at 57 @ right nare. Pt denies flatus but states walking seems to be stirring things up. I feel like I could almost fart but don't want to have an accident in my pants. Bowels hypoactive. Abdomen tender to palpation. Dressing to medial abdomen dry and intact. Pt is currently having PICC placed for TPN
--- NOTE | 2023-01-06 20:06 | CRLHL7_ITS ---
For Patients: As a result of the Century Cures Act, medical imaging exams and procedure reports are released immediately into your electronic medical record. You may view this report before your referring provider. If you have questions, please contact your health care provider. Indication: PICC placement Technique: Chest 1 view Comparison: None Findings/Impression: Cardiovascular and mediastinum: Normal heart size. Atherosclerotic thoracic aorta. Mediastinum is within normal limits. Left-sided PICC is in satisfactory position with the tip in the low SVC. Lungs and pleural space: Low lung volumes with bronchovascular crowding. No focal consolidation. No pleural effusion or pneumothorax Bones and soft tissues: Enteric tube tip projects over the stomach in the left upper quadrant. Degenerative changes of the spine and bilateral shoulders. Dictated by Oliver Mclaughlin MD @ 01/06/2023 9:02:45 PM (Electronically Signed)
[2023-01-06] MEDS: ENOXAPARIN 40 MG/0.4 ML INJ SUBCUT (20:28)
[2023-01-06] MEDS: AA 5 %/CALCIUM/LYTES/DEXT 20 % 2,000 ML 30 ML IVPB (21:17)
[2023-01-06] MEDS: LACTATED RINGERS 1000 ML 1,000 ML 70 ML IV (21:19)
[2023-01-07] MEDS: PIPERACILLIN/TAZOBACTAM 3.375 GM in 0.9 % SODIUM CHLORIDE Mini-bag 100 ML IVPB ×4 (01:50→21:10)
[2023-01-07 02:16] VITALS: BP 135/78; PULSE 75; RESP 18; TEMP 36.6; O2SAT 92
[2023-01-07] MEDS: LACTATED RINGERS 1000 ML 1,000 ML 30 ML IV (03:11)
[2023-01-07] MEDS: AA 5 %/CALCIUM/LYTES/DEXT 20 % 2,000 ML 60 ML IVPB ×2 (05:06→18:02)
--- NOTE | 2023-01-07 06:42 | PC.NURSE ---
: pleasant and cooperative. Walked the halls x 1. ? PICC line placement verified around 2099, TPN and Lipids started at 2116. TPN rate increased 8hrs later at 0500, per nurse discretion (time is off on eMAR due to late initial admin). ? 300ml thick green NG output from -. [employer] Screen Watcher noticed pt having increased burping/hiccups, NG tubing needed to be flushed and reconnected ? 150mL output received after line became ?unclogged?, will cont to monitor, New NG output canister placed at 0600. ? Bowels active. No BM. Pt states he has not passed flatus. Dressing to abd CDI. Lap sites HARISH. ?
[2023-01-07 07:00] VITALS: BP 152/78; PULSE 73; RESP 18; TEMP 37.6; O2SAT 92
[2023-01-07 07:20] LABS: Basophils Absolute Auto 0.02 K/uL (0.00-0.30); Basophils Percent Auto 0.2 % (0.0-3.0); Eosinophils Absolute Auto 0.11 K/uL (0.00-0.50); Eosinophils Percent Auto 1.2 % (0.0-7.0); Hematocrit 38.6 % (37.0-53.0); Immature Granulocytes Abs Auto 0.31 K/uL (0.00-0.30); Immature Granulocytes Pct Auto 3.4 %; Lymphocytes Percent Auto 10.2 % (20-44); Mean Corpuscular HGB Conc 34 gm/dL (32-36); Mean Corpuscular Hemoglobin 30 pg (26-34); Mean Corpuscular Volume 88 fL (80-100); Monocytes Percent Auto 7.5 % (0.0-11.0); Neutrophils Percent Auto 77.5 % (42.0-72.0); Platelet Count* 197 K/uL (140-440); RDW Coefficient of Variation % 12.3 % (11.5-15.5); Red Blood Count 4.37 m/uL (4.30-5.90); White Blood Count* 9.03 K/uL (4.50-11.00)
[2023-01-07 07:33] LABS: Slide Review Reflex Yes
[2023-01-07 07:46] LABS: INR 1.27 (0.91-1.10); Prothrombin Time 16.6 Seconds
[2023-01-07 07:47] LABS: Chloride* 106 mmol/L (96-114); Potassium* 3.3 mmol/L (3.6-5.1); Sodium* 135 mmol/L (135-149)
[2023-01-07 07:50] LABS: Blood Urea Nitrogen* 17 mg/dL (7-30); Carbon Dioxide* 27 mmol/L (20-32); Creatinine* 0.8 mg/dL (0.5-1.5); Est. Creatinine Clearance* 56.71; Estimated Glomerular Filt Rate 92 ml/min
[2023-01-07 07:51] LABS: Calcium* 7.1 mg/dL (8.4-10.6); Glucose* 184 mg/dL (60-115); Magnesium* 2.3 mg/dL (1.5-2.6); Phosphorus* 2.3 mg/dL (2.5-4.5); Triglycerides* 172 mg/dL (40-149)
[2023-01-07] MEDS: 0.9 % SODIUM CHLORIDE 250 ml IV (08:14)
[2023-01-07 08:26] LABS: Slide Review Acceptable Review (Acceptable)
[2023-01-07] MEDS: PANTOPRAZOLE SODIUM 40 MG INJ IVP (09:19)
--- NOTE | 2023-01-07 10:22 | PM.GSPN ---
Subjective Subjective Date Seen: 01/07/23 Interval history: Patient denies abdominal pain. He walked. Yesterday he had some hiccups in the evening. His NG tube was clogging up and was flushed. His hiccups got better after NG tube was patent again. He denies passing gas. Denies any nausea or vomiting. TPN was started yesterday. Exam Narrative: Exam Narrative: Abdomen is soft, very minimally distended, tender to palpation in the left mid abdomen. All incisions were examined and have no surrounding erythema. The tim are intact. Const: Vital Signs, click to edit/add: Vital Signs - 24 hr 01/06/23 11:30 01/06/23 15:22 01/06/23 15:30 Temperature 98.4 F 97.8 F Pulse Rate [Right Pulse Oximeter] 82 96 Respiratory Rate 16 20 20 Blood Pressure [Le ft Arm] 126/72 129/77 Blood Pressure [Ri ght Arm] Pulse Oximetry 92 96 96 Oxygen Delivery Me thod Room Air Room Air Room Air 01/06/23 19:00 01/06/23 22:25 01/06/23 22:25 Temperature 97.9 F Pulse Rate [Right Pulse Oximeter] 79 75 Respiratory Rate 18 18 18 Blood Pressure [Le ft Arm] 151/73 H Blood Pressure [Ri ght Arm] Pulse Oximetry 94 91 Oxygen Delivery Me thod Room Air Room Air 01/06/23 22:25 01/07/23 02:16 01/07/23 07:00 Temperature 97.9 F 98 F 99.6 F Pulse Rate [Right Pulse Oximeter] 75 75 73 Respiratory Rate 18 18 18 Blood Pressure [Le ft Arm] Blood Pressure [Ri ght Arm] 133/72 135/78 152/78 H Pulse Oximetry 91 92 92 Oxygen Delivery Me thod Room Air Room Air Room Air 01/07/23 07:00 01/07/23 07:00 Temperature Pulse Rate [Right Pulse Oximeter] 73 Respiratory Rate 18 18 Blood Pressure [Le ft Arm] Blood Pressure [Ri ght Arm] Pulse Oximetry 92 Oxygen Delivery Me thod Room Air Progress Note: A&P Assessment and plan (1) S/P exploratory laparotomy: Status: Acute Plan 77-year-old male s/p exploratory laparotomy POD 2. I discussed with the patient that we are waiting for return of bowel function from his recent surgery. Will continue NG tube to suction until return of bowel function. Patient will continue TPN.
[2023-01-07 11:00] VITALS: BP 138/75; PULSE 84; RESP 20; TEMP 36.8; O2SAT 92
--- NOTE | 2023-01-07 11:02 | CRLHL7_ITS ---
For Patients: As a result of the Century Cures Act, medical imaging exams and procedure reports are released immediately into your electronic medical record. You may view this report before your referring provider. If you have questions, please contact your health care provider. INDICATION: dyspnea TECHNIQUE: Chest two views COMPARISON: 01/06/2023 FINDINGS: Nasogastric tube and left PICC line are unchanged. Linear densities within both lung bases. No pneumothorax or pleural effusion. Mediastinum similar. IMPRESSION: Bibasilar atelectasis. Dictated by Bairon Copeland MD @ 01/07/2023 12:29:36 PM (Electronically Signed)
--- NOTE | 2023-01-07 14:09 | P.IMPN_ITS ---
Progress Note: A&P Assessment and plan (1) S/P appendectomy: Problem details: - 01/01/23 laparoscopic converted to open appendectomy for perforated appendicitis - 01/05/23 exploratory laparotomy with lysis of adhesions Status: Acute (2) Postoperative ileus: Problem details: - Persistent, now on TPN - Cares per surgery Status: Acute (3) Essential hypertension: Problem details: - on lisinopril 20 mg on an outpatient, blood pressure typically runs 120/80s per chart review - continue p.r.n. IV enalapril until he is able to take orals, at which time we can transition him back to his usual medication Status: Acute (4) Hyperlipidemia: Problem details: - on statin as an outpatient, continue Status: Acute (5) Prediabetes: Problem details: - A1c 6.1 in 2019 per chart review - Diet controlled. Currently NPO. When advancing to fulls and beyond, use diabetic diet. - using a q6 hour insulin sliding scale while on TPN Status: Acute Plan - monitoring labs while on TPN. I have spoken with nutrition and Pharmacy today and we are adjusting TPN accordingly. - VTE prophylaxis: Adilson's hose and low-dose enoxaparin nightly Subjective Time Seen by Provider: 11:00 Date Seen: 01/07/23 Interval history: Jerome has been tolerating TPN overnight. His NG tube clogged a few times overnight which caused him some symptoms each time it clogged, he is currently feeling pretty well. He does have some dyspnea with movement which is new. He has not been febrile or tachycardic. Continues to ambulate frequently. He had the incentive spirometer on the table in front of him. He said that he was doing it every hour while awake. I encouraged him to keep up with that. Exam Narrative: Exam Narrative: General: No acute distress. Awake, alert, oriented x3. No pallor. No jaundice. NG tube in right nares. Oropharynx: Clear. Mucous membranes moist. Cardiovascular: Regular rate and rhythm. No murmurs, gallops, or rubs. Respiratory: Clear to auscultation bilaterally. No wheezes or crackles. Abdomen: Some bowel sounds. Mild distention, bandages are clean, dry, and intact. Extremities: No pedal edema. Const: Vital Signs, click to edit/add: Vital Signs - 24 hr 01/06/23 15:22 01/06/23 15:30 01/06/23 19:00 Temperature 97.8 F 97.9 F Pulse Rate [Right Pulse Oximeter] 96 79 Respiratory Rate 20 20 18 Blood Pressure [Le ft Arm] 129/77 151/73 H Blood Pressure [Ri ght Arm] Pulse Oximetry 96 96 94 Oxygen Delivery Me thod Room Air Room Air Room Air 01/06/23 22:25 01/06/23 22:25 01/06/23 22:25 Temperature 97.9 F Pulse Rate [Right Pulse Oximeter] 75 75 Respiratory Rate 18 18 18 Blood Pressure [Le ft Arm] Blood Pressure [Ri ght Arm] 133/72 Pulse Oximetry 91 91 Oxygen Delivery Ri thod Room Air Room Air 01/07/23 02:16 01/07/23 07:00 01/07/23 07:00 Temperature 98 F 99.6 F Pulse Rate [Right Pulse Oximeter] 75 73 73 Respiratory Rate 18 18 18 Blood Pressure [Le ft Arm] Blood Pressure [Ri ght Arm] 135/78 152/78 H Pulse Oximetry 92 92 Oxygen Delivery Ri thod Room Air Room Air 01/07/23 07:00 01/07/23 11:00 Temperature 98.3 F Pulse Rate [Right Pulse Oximeter] 84 Respiratory Rate 18 20 Blood Pressure [Le ft Arm] Blood Pressure [Ri ght Arm] 138/75 Pulse Oximetry 92 92 Oxygen Delivery Ri thod Room Air Room Air Labs Labs: Laboratory Results - last 24 hr 01/06/23 01/06/23 01/06/23 15:16 15:16 15:16 WBC 10.68 RBC 4.81 Hgb 13.9 Hct 42.1 MCV 88 MCH 29 MCHC 33 RDW Coeff of Anastasiia 12.4 Plt Count 234 Neut % (Auto) 75.0 H Lymph % (Auto) 12.5 L [place] % (Auto) 9.6 Eos % (Auto) 0.4 Baso % (Auto) 0.1 Neut # (Auto) 8.00 H Lymph # (Auto) 1.30 [place] # (Auto) 1.00 H Eos # (Auto) 0.04 Baso # (Auto) 0.01 Diff Slide Review INR 1.24 H Sodium 137 Potassium 4.3 Chloride 105 Carbon Dioxide 27 BUN 17 Creatinine 0.9 Estimated Creat Clear 56.71 Estimated GFR 89 Glucose 96 Calcium 7.6 L Phosphorus 3.1 Magnesium 2.1 Total Bilirubin 0.8 AST 40 H ALT 41 Alkaline Phosphatase 67 Total Protein 5.0 L Albumin 2.6 L Triglycerides 141 01/07/23 01/07/23 01/07/23 05:58 05:58 05:58 WBC 9.03 RBC 4.37 Hgb 13.0 L Hct 38.6 MCV 88 MCH 30 MCHC 34 RDW Coeff of Anastasiia 12.3 Plt Count 197 Neut % (Auto) 77.5 H Lymph % (Auto) 10.2 L [place] % (Auto) 7.5 Eos % (Auto) 1.2 Baso % (Auto) 0.2 Neut # (Auto) 7.00 Lymph # (Auto) 0.90 [place] # (Auto) 0.70 Eos # (Auto) 0.11 Baso # (Auto) 0.02 Diff Slide Review Acceptable Review INR 1.27 H Sodium 135 Potassium 3.3 L Chloride 106 Carbon Dioxide 27 BUN 17 Creatinine 0.8 Estimated Creat Clear 56.71 Estimated GFR 92 Glucose 184 H Calcium 7.1 L Phosphorus 2.3 L Magnesium 2.3 Total Bilirubin AST ALT Alkaline Phosphatase Total Protein Albumin Triglycerides 172 H Ordering Physician: Brittny Lira M.D. Date of Service: 01/07/23 Procedure(s): XR chest 2V Accession Number(s): [id number] cc: Brittny Lira M.D.; Provider,Not a Local ~ For Patients:? As a result of the Cures Act, medical imaging exams and procedure reports are released immediately into your electronic medical record.? You may view this report before your referring provider.? If you have questions, please contact your health care provider. INDICATION: dyspnea TECHNIQUE: Chest two views COMPARISON: 01/06/2023 FINDINGS: Nasogastric tube and left PICC line are unchanged. Linear densities within both lung bases. No pneumothorax or pleural effusion. Mediastinum similar. IMPRESSION: Bibasilar atelectasis. Dictated by Bairon Copeland MD @ 01/07/2023 12:29:36 PM (Electronically Signed)
[2023-01-07 15:00] VITALS: BP 137/81; PULSE 24; RESP 24; TEMP 36.6; O2SAT 94
[2023-01-07] MEDS: POTASSIUM CHLORIDE 10 MEQ/100 ML PIGGYBACK 100 MEQ IVPB ×4 (16:37→19:54)
--- NOTE | 2023-01-07 18:51 | PC.NURSE ---
End of Shift: Patient pleasant and cooperative. Patient vitally stable, lungs clear, BS WNL, Right arm IV running LR at 40 and Potassium, Left arm PICC running TPN at 60. Patient independent, has walked the angelo x4 today. Patient only needs assistance with clamping NG. Patient rates abdominal pain 2/10, declines pain medication. NG output from 7-1400 was 375. Patient urinating.
[2023-01-07 19:00] VITALS: BP 140/79; PULSE 76; RESP 20; TEMP 36.8; O2SAT 95
[2023-01-07] MEDS: ENOXAPARIN 40 MG/0.4 ML INJ SUBCUT (21:10)
[2023-01-07 23:00] VITALS: BP 131/65; PULSE 82; RESP 18; TEMP 36.4; O2SAT 94
[2023-01-08 03:00] VITALS: BP 141/81; PULSE 78; RESP 16; TEMP 36.6; O2SAT 95
[2023-01-08] MEDS: PIPERACILLIN/TAZOBACTAM 3.375 GM in 0.9 % SODIUM CHLORIDE Mini-bag 100 ML IVPB ×4 (03:20→21:18)
[2023-01-08] MEDS: LACTATED RINGERS 1000 ML 1,000 ML 40 ML IV (03:22)
--- NOTE | 2023-01-08 06:21 | PC.NURSE ---
SHIFT NOTE 19-: Pt A&O, pleasant and cooperative. Surgical incisions HARISH, no drainage noted. Pt reports passing flatus this AM. Denies N/V, pain, SOB and CP. NG patent. Blood sugars 184 and 160. PICC patent, TPN infusing.
[2023-01-08 07:00] VITALS: BP 143/83; PULSE 73; RESP 18; TEMP 36.9; O2SAT 94
[2023-01-08] MEDS: PANTOPRAZOLE SODIUM 40 MG INJ IVP (09:02)
--- NOTE | 2023-01-08 09:18 | PC.NURSE ---
Patient's NG is clamped as of 9:15 along with tim 8 tim removed from right lower quad per Dr. Martinez's telephone ordered
[2023-01-08 09:33] LABS: Potassium* 3.8 mmol/L (3.6-5.1)
[2023-01-08 09:36] LABS: Phosphorus* 2.4 mg/dL (2.5-4.5)
--- NOTE | 2023-01-08 09:46 | PM.GSPN ---
Subjective Subjective Date Seen: 01/08/23 Interval history: Patient is doing okay this morning. He did pass gas overnight and this morning. He feels like his bowels are moving more. He denies any nausea or vomiting. No bloating of his abdomen. No other concerns. He has been walking the halls without difficulty. Exam Narrative: Exam Narrative: General: Alert and oriented, no acute distress HEENT: NG tube remains in place with bile tinged output Abdomen: Soft, nontender and nondistended. [place] in place clean/dry/intact. No concern for infection. Const: Vital Signs, click to edit/add: Vital Signs - 24 hr 01/07/23 11:00 01/07/23 15:00 01/07/23 15:00 Temperature 98.3 F 98 F Pulse Rate [Right Pulse Oximeter] 84 24 L 24 L Respiratory Rate 20 24 24 Blood Pressure [Ri ght Arm] 138/75 137/81 Pulse Oximetry 92 94 Oxygen Delivery Me thod Room Air Room Air 01/07/23 15:00 01/07/23 19:00 01/07/23 23:00 Temperature 98.3 F Pulse Rate [Right Pulse Oximeter] 76 Respiratory Rate 24 20 18 Blood Pressure [Ri ght Arm] 140/79 H Pulse Oximetry 94 95 94 Oxygen Delivery Me thod Room Air Room Air Room Air 01/07/23 23:00 01/08/23 03:00 01/08/23 07:00 Temperature 97.6 F 97.8 F Pulse Rate [Right Pulse Oximeter] 82 78 Respiratory Rate 18 16 Blood Pressure [Ri ght Arm] 131/65 141/81 H Pulse Oximetry 94 95 94 Oxygen Delivery [place] thod Room Air Room Air Room Air 01/08/23 07:00 01/08/23 07:00 Temperature 98.4 F Pulse Rate [Right Pulse Oximeter] 73 73 Respiratory Rate 18 18 Blood Pressure [Ri ght Arm] 143/83 H Pulse Oximetry 94 Oxygen Delivery Me thod Room Air Labs/Imaging Labs Labs: Reviewed, no leukocytosis. Hypophosphatemia, being managed by hospitalist. Progress Note: A&P Assessment and plan (1) S/P exploratory laparotomy: Status: Acute Plan 77-year-old male s/p exploratory laparotomy POD 3. Patient has had passage of gas. NG tube output continues to be high (1250 since yesterday), but is lightening in color and less thickened appearance. Will do a clamping trial this morning. [place] in right lower quadrant can be removed. All other cares per hospitalist.
--- NOTE | 2023-01-08 10:47 | PM.IMPN1 ---
Progress Note: A&P Assessment and plan (1) On total parenteral nutrition (TPN): Problem details: - appreciate input from Pharmacy and Dietitian, adjusting accordingly for electrolyte abnormalities (hypokalemia, hypophosphatemia, hypocalcemia) Status: Acute (2) Essential hypertension: Problem details: - on lisinopril 20 mg on an outpatient, outpatient blood pressure typically runs 120/80s per chart review - oral meds d/c'd while on TPN, has prn IV enalapril available until we can transition him back to his po medications Status: Acute (3) S/P appendectomy: Problem details: - 01/01/23 laparoscopic converted to open appendectomy for perforated appendicitis - 01/05/23 exploratory laparotomy with lysis of adhesions - primary postoperative management per General Surgery team Status: Acute Plan - continue to follow labs, continue TPN until tolerating po intake - Lovenox, PPI, ambulation for ppx Subjective Date Seen: 01/08/23 Interval history: No acute events overnight. Patient started passing flatus this morning, is encouraged by this. Tolerating TPN. Continues to ambulate regularly throughout the day. Exam Narrative: Exam Narrative: GEN: Alert and oriented, sitting comfortably in bedside chair HEENT: EOMIs bilaterally, no scleral icterus CV: RRR, No concerning murmurs, rubs, or gallops R: LCTA bilaterally without concerning wheezing, rales, or rhonchi Ab: mild distention, hypoactive bowel sounds, no tenderness to palpation Ext: wwp, no concerning edema Skin: No concerning skin lesions or rashes on exposed skin Neuro: No focal deficits, no resting tremor Psych: Appropriate Const: Vital Signs, click to edit/add: Vital Signs - 24 hr 01/07/23 11:00 01/07/23 15:00 01/07/23 15:00 Temperature 98.3 F 98 F Pulse Rate [Right Pulse Oximeter] 84 24 L 24 L Respiratory Rate 20 24 24 Blood Pressure [Ri ght Arm] 138/75 137/81 Pulse Oximetry 92 94 Oxygen Delivery Me thod Room Air Room Air 01/07/23 15:00 01/07/23 19:00 01/07/23 23:00 Temperature 98.3 F Pulse Rate [Right Pulse Oximeter] 76 Respiratory Rate 24 20 18 Blood Pressure [Ri ght Arm] 140/79 H Pulse Oximetry 94 95 94 Oxygen Delivery Me thod Room Air Room Air Room Air 01/07/23 23:00 01/08/23 03:00 01/08/23 07:00 Temperature 97.6 F 97.8 F Pulse Rate [Right Pulse Oximeter] 82 78 Respiratory Rate 18 16 Blood Pressure [Ri ght Arm] 131/65 141/81 H Pulse Oximetry 94 95 94 Oxygen Delivery Me thod Room Air Room Air Room Air 01/08/23 07:00 01/08/23 07:00 Temperature 98.4 F Pulse Rate [Right Pulse Oximeter] 73 73 Respiratory Rate 18 18 Blood Pressure [Ri ght Arm] 143/83 H Pulse Oximetry 94 Oxygen Delivery Me thod Room Air Labs Labs: Laboratory Results - last 24 hr 01/08/23 08:56 Potassium 3.8 Phosphorus 2.4 L
[2023-01-08 11:03] LABS: Calcium* 7.2 mg/dL (8.4-10.6)
--- NOTE | 2023-01-08 14:36 | PC.NURSE ---
End of Shift Note: Patient is alert orientated has not complained of any pain or nausea been up and ambulating several times in the hallway. Currently his TEDS are off cause he has been moving a lot today. [place] removed and replaced with steri-strips to right lower abd. He was very proud that he has been passing gas today. Did have a very small BM. NG has been clamped since early this morning. Report given to Pauly WAY
[2023-01-08 15:00] VITALS: PULSE 80; RESP 16; O2SAT 94
[2023-01-08 15:20] VITALS: BP 139/79; PULSE 80; RESP 16; TEMP 36.6; O2SAT 95
[2023-01-08] MEDS: AA 5 %/CALCIUM/LYTES/DEXT 20 % 2,000 ML 60 ML IVPB (18:31)
[2023-01-08 19:00] VITALS: BP 136/83; PULSE 74; RESP 18; TEMP 36.4; O2SAT 95
--- NOTE | 2023-01-08 19:04 | PC.NURSE ---
[employer] [facility] at 1500, pt is alert and oriented, pleasant and cooperative. Vitals stable, on RA. Up amb ind in hallway. Pt had NG tube removed by this evening and advanced to clear liquid diet. Continues on LR at 40ml, TPN at 60ml/hr and Lipids at 14ml/hr this evening. Pt tolerating clear liquid diet tray this evening, taking it slow per 's instruction. BS 144 this evening, no SSI per protocol. Pt denies pain and denies nausea. Passing flatus and a couple very small BMs today. Voiding without issue. Has call light within reach and uses appropriately.
[2023-01-08] MEDS: ENOXAPARIN 40 MG/0.4 ML INJ SUBCUT (21:18)
[2023-01-08 23:00] VITALS: BP 131/77; PULSE 78; RESP 18; TEMP 36.8; O2SAT 95
[2023-01-09 03:00] VITALS: BP 148/83; PULSE 81; RESP 18; TEMP 36.6; O2SAT 96
[2023-01-09] MEDS: PIPERACILLIN/TAZOBACTAM 3.375 GM in 0.9 % SODIUM CHLORIDE Mini-bag 100 ML IVPB ×2 (03:01→09:03)
[2023-01-09] MEDS: ENALAPRILAT 1.25 MG/ML IVP ×2 (03:09→08:24)
[2023-01-09] MEDS: LACTATED RINGERS 1000 ML 1,000 ML 40 ML IV (05:07)
--- NOTE | 2023-01-09 05:55 | PC.NURSE ---
Shift note: Patient's condition is improving. Tolerating clear liquid diet well without N/V. Patient had 3x BM (watery and greenish in color) and passing more gas. Pt tolerating pain very well. Ambulated independently to without any gait problem. At 0300, Bp was 148/83, Enalaprilat 1.25mg given as ordered. Incision sites clean and dry and well approximated.
[2023-01-09 05:56] LABS: Prealbumin 7.7 mg/dL (20.0-40.0)
[2023-01-09 05:57] LABS: Prealbumin 6.9 mg/dL (20.0-40.0)
[2023-01-09 06:30] LABS: Ionized Calcium* 1.02 mmol/L (1.11-1.30)
[2023-01-09 06:35] LABS: Basophils Absolute Auto 0.02 K/uL (0.00-0.30); Basophils Percent Auto 0.2 % (0.0-3.0); Eosinophils Absolute Auto 0.11 K/uL (0.00-0.50); Hemoglobin* 12.9 gm/dL (13.5-17.5); Immature Granulocytes Pct Auto 4.7 %; Lymphocytes Percent Auto 7.8 % (20-44); Mean Corpuscular HGB Conc 33 gm/dL (32-36); Mean Corpuscular Hemoglobin 29 pg (26-34); Mean Corpuscular Volume 88 fL (80-100); Monocytes Percent Auto 6.4 % (0.0-11.0); Neutrophils Percent Auto 79.9 % (42.0-72.0); Platelet Count* 155 K/uL (140-440); RDW Coefficient of Variation % 12.3 % (11.5-15.5); Red Blood Count 4.44 m/uL (4.30-5.90); White Blood Count* 10.75 K/uL (4.50-11.00)
[2023-01-09 06:55] LABS: Albumin* 2.7 g/dL (3.3-5.0); Chloride* 107 mmol/L (96-114)
[2023-01-09 06:56] LABS: Potassium* 4.3 mmol/L (3.6-5.1); Slide Review Reflex No; Sodium* 132 mmol/L (135-149)
[2023-01-09 06:58] LABS: Aspartate Amino Transferase* 79 U/L (12-35); Bilirubin Total* 0.5 mg/dL (0.1-1.5); Carbon Dioxide* 24 mmol/L (20-32); Creatinine* 0.6 mg/dL (0.5-1.5); Est. Creatinine Clearance* 56.71; Estimated Glomerular Filt Rate 100 ml/min; Total Protein* 5.6 g/dL (6.0-8.3)
[2023-01-09 06:59] LABS: Alanine Aminotransferase* 90 U/L (4-50); Alkaline Phosphatase* 73 U/L (40-150); Blood Urea Nitrogen* 11 mg/dL (7-30); Calcium* 7.3 mg/dL (8.4-10.6); Glucose* 143 mg/dL (60-115); Magnesium* 2.1 mg/dL (1.5-2.6); Phosphorus* 2.9 mg/dL (2.5-4.5)
[2023-01-09 07:00] VITALS: BP 149/95; PULSE 75; RESP 18; TEMP 37.6; O2SAT 95
[2023-01-09] MEDS: PANTOPRAZOLE SODIUM 40 MG INJ IVP (09:03)
--- NOTE | 2023-01-09 09:04 | PM.GSPN ---
Subjective Subjective Date Seen: 01/09/23 Interval history: Patient is doing well this morning. He did tolerate some clear liquids yesterday. Denies any nausea or vomiting. He reports that the liquids ?went right through me? with some liquidy stools and passage of gas. He does have an appetite this morning. He is otherwise walking the halls without difficulty. No reported fevers or chills. Exam Narrative: Exam Narrative: General: Alert and oriented, no acute distress. Abdomen: Soft, nontender and nondistended. Steri-Strips in right lower quadrant incision. [place] over midline. Incisions clean/dry/intact no concern for infection. Const: Vital Signs, click to edit/add: Vital Signs - 24 hr 01/08/23 15:20 01/08/23 15:00 01/08/23 15:00 Temperature 98 F Pulse Rate [Right Pulse Oximeter] 80 80 Respiratory Rate 16 16 Blood Pressure [Ri ght Arm] 139/79 Pulse Oximetry 95 94 Oxygen Delivery Sc thod Room Air Room Air 01/08/23 19:00 01/08/23 23:00 01/08/23 23:00 Temperature 97.5 F L 98.2 F Pulse Rate [Right Pulse Oximeter] 74 78 Respiratory Rate 18 18 18 Blood Pressure [Ri ght Arm] 136/83 131/77 Pulse Oximetry 95 95 95 Oxygen Delivery Sc thod Room Air Room Air Room Air 01/09/23 03:00 01/09/23 07:00 01/09/23 07:00 Temperature 98 F Pulse Rate [Right Pulse Oximeter] 81 75 Respiratory Rate 18 18 18 Blood Pressure [Ri ght Arm] 148/83 H Pulse Oximetry 96 95 Oxygen Delivery Sc thod Room Air Room Air 01/09/23 07:00 Temperature 99.7 F H Pulse Rate [Right Pulse Oximeter] 75 Respiratory Rate 18 Blood Pressure [Ri ght Arm] 149/95 H Pulse Oximetry 95 Oxygen Delivery Sc thod Room Air Progress Note: A&P Assessment and plan (1) S/P exploratory laparotomy: Status: Acute Plan 77-year-old male s/p exploratory laparotomy POD 4. Patient tolerated clamping trial yesterday. NG tube was removed in the evening and he was given clear liquids. He has had continued passage of gas and liquidy stools. He tolerated clear liquids without difficulty. Will continue with a clear liquid diet this morning, if tolerated will advance to fulls for lunch. I spoke with the hospitalist who will also start to titrate off his TPN.
[2023-01-09 09:51] VITALS: BP 134/74
[2023-01-09] MEDS: 0.9 % SODIUM CHLORIDE 250 ml IV (10:00)
[2023-01-09 11:00] VITALS: BP 126/79; PULSE 91; RESP 20; TEMP 36.5; O2SAT 97
--- NOTE | 2023-01-09 12:35 | P.IMPN_ITS ---
Progress Note: A&P Assessment and plan (1) S/P appendectomy: Problem details: - 01/01/23 laparoscopic converted to open appendectomy for perforated appendicitis - 01/05/23 exploratory laparotomy with lysis of adhesions - primary postoperative management per General Surgery team Status: Acute (2) S/P exploratory laparotomy: Status: Acute (3) On total parenteral nutrition (TPN): Problem details: - appreciate input from Pharmacy and Dietitian, adjusting accordingly for electrolyte abnormalities (hypokalemia, hypophosphatemia, hypocalcemia) - oral diet is progressing today; will decrease rate of TPN by 1/2 with each tolerated meal. -replace calcium. trend LFTs and sodium. Status: Acute (4) Essential hypertension: Problem details: - on lisinopril 20 mg on an outpatient, outpatient blood pressure typically runs 120/80s per chart review - while NPO - IV ACEI used for HTN management. Status: Acute Subjective Date Seen: 01/09/23 Interval history: Daily Progress Note - Hospital Medicine Day #: 11 POST OP DAY 10 (12/30 JULIA) Laparoscopic converted to open appendectomy POST OP DAY 4 (01/05 TEE) Pre-op diagnosis: 1. s/p laparoscopic converted to open appendectomy 6 days ago. 2. Non resolving postoperative ileus. Post-op diagnosis: 1. s/p open appendectomy. 2. 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 Type of Procedure: 1. Exploratory laparotomy. 2. Lysis of adhesions. CC: Perforated appendicitis, postop small-bowel obstruction requiring operative intervention, total parental nutrition OVERNIGHT UPDATES FROM STAFF & MED, LAB, IMAGING UPDATES Vitals reviewed and oral stable. He is on room air. He is afebrile. T-max 99.7? this morning. Mildly hypertensive 149/95 CBC stable this morning. Postop hemoglobin has been 13. Electrolytes, he is on TPN, mild hyponatremia and hypocalcemia but otherwise stable phosphorus, mild bump in his LFTs which we are trending, total protein is stable as is albumin. Objective: Vitals: see above abdomen: soft, bowel sounds. Lungs: Clear. Cardiac: S1S2. Disposition/Potential discharge - Likely to return to previous living situation. Total time is 35 minutes with greater than 50% spent in counseling and coordination of care. Exam Const: Vital Signs, click to edit/add: Vital Signs - 24 hr 01/08/23 15:20 01/08/23 15:00 01/08/23 15:00 Temperature 98 F Pulse Rate [Right Pulse Oximeter] 80 80 Respiratory Rate 16 16 Blood Pressure [Ri ght Arm] 139/79 Pulse Oximetry 95 94 Oxygen Delivery Me thod Room Air Room Air 01/08/23 19:00 01/08/23 23:00 01/08/23 23:00 Temperature 97.5 F L 98.2 F Pulse Rate [Right Pulse Oximeter] 74 78 Respiratory Rate 18 18 18 Blood Pressure [Ri ght Arm] 136/83 131/77 Pulse Oximetry 95 95 95 Oxygen Delivery Me thod Room Air Room Air Room Air 01/09/23 03:00 01/09/23 07:00 01/09/23 07:00 Temperature 98 F Pulse Rate [Right Pulse Oximeter] 81 75 Respiratory Rate 18 18 18 Blood Pressure [Ri ght Arm] 148/83 H Pulse Oximetry 96 95 Oxygen Delivery Me thod Room Air Room Air 01/09/23 07:00 01/09/23 09:51 01/09/23 11:00 Temperature 99.7 F H 97.7 F Pulse Rate [Right Pulse Oximeter] 75 91 Respiratory Rate 18 20 Blood Pressure [Ri ght Arm] 149/95 H 134/74 126/79 Pulse Oximetry 95 97 Oxygen Delivery Me thod Room Air Room Air Labs Labs: Laboratory Results - last 24 hr 01/06/23 01/07/23 01/09/23 15:16 05:58 06:12 WBC RBC Hgb Hct MCV MCH MCHC RDW Coeff of Anastasiia Plt Count Neut % (Auto) Lymph % (Auto) [place] % (Auto) Eos % (Auto) Baso % (Auto) Neut # (Auto) Lymph # (Auto) [place] # (Auto) Eos # (Auto) Baso # (Auto) Sodium 132 L Potassium 4.3 Chloride 107 Carbon Dioxide 24 BUN 11 Creatinine 0.6 Estimated Creat Clear 56.71 Estimated GFR 100 Glucose 143 H Calcium 7.3 L Ionized Calcium [place] Phosphorus 2.9 Magnesium 2.1 Total Bilirubin 0.5 AST 79 H ALT 90 H Alkaline Phosphatase 73 Total Protein 5.6 L Albumin 2.7 L Prealbumin 7.7 L 6.9 L 01/09/23 01/09/23 06:12 06:12 WBC 10.75 RBC 4.44 Hgb 12.9 L Hct 39.0 MCV 88 MCH 29 MCHC 33 RDW Coeff of Anastasiia 12.3 Plt Count 155 Neut % (Auto) 79.9 H Lymph % (Auto) 7.8 L [place] % (Auto) 6.4 Eos % (Auto) 1.0 Baso % (Auto) 0.2 Neut # (Auto) 8.60 H Lymph # (Auto) 0.80 L [place] # (Auto) 0.70 Eos # (Auto) 0.11 Baso # (Auto) 0.02 Sodium Potassium Chloride Carbon Dioxide BUN Creatinine Estimated Creat Clear Estimated GFR Glucose Calcium Ionized Calcium [place] 1.02 L Phosphorus Magnesium Total Bilirubin AST ALT Alkaline Phosphatase Total Protein Albumin Prealbumin
--- NOTE | 2023-01-09 14:41 | PC.NURSE ---
Nursing Care Hours: [id number] Pt this shift alert and oriented, calm and cooperative with cares. Frequent loose stools today, keeping pt from walking too far from a bathroom. Tolerated oral liquids, advanced to full liquids for late lunch. Protien Ensure offered. IV and PICC patent and asymptomatic. BP in morning above 140, Vasotec given per protocol. Rechecked after 1 hour, decreased to 134/74. No c/o pain, just stiffness but tolerable. Incisions open to air, no SS of infection. Pt afrebile. TPN decreased and ABX given in morning.
[2023-01-09 15:00] VITALS: BP 142/82; PULSE 85; RESP 18; O2SAT 96
--- NOTE | 2023-01-09 18:35 | PC.NURSE ---
PATIENT PLEASANT AND COOPERATIVE, ALERT AND ORIENTED, TPN DC'D AND FLUIDS PER MD ORDER, UP AD DEREK WITH STEADY GAIT, DECLINING PAIN, MEDIAL ABDOMEN INCISION INTACT AND OPEN TO AIR, RIGHT LOWER ABDOMEN INCISION INTACT WITH STERI STRIPES, TOLERATING FULL LIQUID DIET.
[2023-01-09 19:00] VITALS: PULSE 78; RESP 18; TEMP 36.7; O2SAT 96
[2023-01-09] MEDS: ENOXAPARIN 40 MG/0.4 ML INJ SUBCUT (21:34)
[2023-01-10 03:00] VITALS: BP 125/70; PULSE 85; RESP 18; TEMP 36.6; O2SAT 97
--- NOTE | 2023-01-10 06:29 | PC.NURSE ---
Pt pleasant and cooperative. Has slept well tonight. Has been up several times to use bathroom. No stools overnight. Good urine output. VSS. BT are positive. Minimal to no pain. Abdominal incisions look good are healing well. Midline is closed with tim and HRAISH. Right lower quad inc closed with steri strips and HARISH. Pt up I.
[2023-01-10 07:43] VITALS: BP 129/84; PULSE 87; RESP 18; TEMP 36.3; O2SAT 95
[2023-01-10] MEDS: PANTOPRAZOLE SODIUM 40 MG INJ IVP (08:47)
[2023-01-10] MEDS: lisinopriL 20 MG TABLET PO (08:47)
[2023-01-10 11:13] VITALS: BP 126/78; PULSE 81; RESP 18; TEMP 36.3; O2SAT 97
--- NOTE | 2023-01-10 13:53 | PM.GSPN ---
Subjective Subjective Date Seen: 01/10/23 Interval history: Patient has tolerated advancing his diet, with regular food for lunch. He denies any abdominal pain or distention. He continues to pass gas and has had multiple bowel movements. No nausea or vomiting. Is ready to go home. Exam Narrative: Exam Narrative: General: Alert and oriented, no acute distress. Abdomen: Soft, nontender nondistended. [place] over midline incision clean/dry/intact. Const: Vital Signs, click to edit/add: Vital Signs - 24 hr 01/09/23 15:00 01/09/23 15:00 01/09/23 19:00 Temperature 98.1 F Pulse Rate [Right Pulse Oximeter] 85 78 Respiratory Rate 18 18 18 Blood Pressure [Ri ght Arm] 142/82 H Pulse Oximetry 96 96 96 Oxygen Delivery Me thod Room Air Room Air Room Air 01/09/23 23:51 01/10/23 03:00 01/10/23 07:43 Temperature 97.8 F Pulse Rate [Right Pulse Oximeter] 85 Respiratory Rate 18 Blood Pressure [Ri ght Arm] 125/70 Pulse Oximetry 97 95 Oxygen Delivery Me thod Room Air Room Air Room Air 01/10/23 07:43 01/10/23 07:43 01/10/23 11:13 Temperature 97.3 F L 97.3 F L Pulse Rate [Right Pulse Oximeter] 87 87 81 Respiratory Rate 18 18 Blood Pressure [Ri ght Arm] 129/84 126/78 Pulse Oximetry 95 97 Oxygen Delivery Me thod Room Air Room Air Progress Note: A&P Assessment and plan (1) S/P exploratory laparotomy: Status: Acute Plan 77-year-old male s/p exploratory laparotomy POD 5. Patient is titrated off of TPN and has advanced regular diet. He has had return of bowel function. Plan to discharge to home today. He will see me or Dr. Martinez in clinic on Friday to remove the tim.
--- NOTE | 2023-01-10 13:55 | P.DS_ITS ---
DS: Providers Provider Date Seen: 01/10/23 Date of admission: 12/30/22 16:46 Primary care physician: Not a Local Provider Admitting Clinician: Pat Bello MD Consults: 12/31/22 17:55 Consult to Respiratory Therapy [CONS] Routine Comment: Reason(s) for RT Consult:: Consult Comment: Requiring O2 after surgery. 01/06/23 13:26 Consult to Nutrition [CONS] Routine Comment: Reason for consult:: Nutritional Consult Attending Physician on discharge: Pat Bello MD DS: Summary Hospital Course Hospital Course: Patient was admitted to the hospital for acute appendicitis. Intraoperatively evidence of abscess and perforation requiring conversion to open. A right lower quadrant drain was left in placed, but able to be removed on postop day 3. His course was complicated by a postop ileus requiring NG tube placement. He was taking to the operating room on postop day 6 for persistent small bowel obstruction. An exploratory laparotomy was performed by Dr. Martinez, with evidence of a single inflammatory adhesion in the right lower quadrant. The cecal repair was patent at that time with no evidence of perforation, abscess or small bowel injury. Postoperatively he was started on TPN. His NG tube was able to be removed on postop day 4 from his exploratory laparotomy. His diet was slowly advanced to regular and he demonstrated return of bowel function. He completed a course of IV antibiotics. At the time of discharge he was tolerating a regular diet, had return of bowel function, was ambulating without difficulty and voiding independently. He will follow up in clinic next week Friday to remove his tim in for evaluation. Time Spent with Patient Time attestation: Total time spent providing and/or coordinating discharge services: Exam Narrative: Exam Narrative: Please see note from same date. Const: Vital Signs, click to edit/add: Vital Signs - 24 hr 01/09/23 15:00 01/09/23 15:00 01/09/23 19:00 Temperature 98.1 F Pulse Rate [Right Pulse Oximeter] 85 78 Respiratory Rate 18 18 18 Blood Pressure [Ri ght Arm] 142/82 H Pulse Oximetry 96 96 96 Oxygen Delivery Me thod Room Air Room Air Room Air 01/09/23 23:51 01/10/23 03:00 01/10/23 07:43 Temperature 97.8 F Pulse Rate [Right Pulse Oximeter] 85 Respiratory Rate 18 Blood Pressure [Ri ght Arm] 125/70 Pulse Oximetry 97 95 Oxygen Delivery Me thod Room Air Room Air Room Air 01/10/23 07:43 01/10/23 07:43 01/10/23 11:13 Temperature 97.3 F L 97.3 F L Pulse Rate [Right Pulse Oximeter] 87 87 81 Respiratory Rate 18 18 Blood Pressure [Ri ght Arm] 129/84 126/78 Pulse Oximetry 95 97 Oxygen Delivery Me thod Room Air Room Air Discharge Plan Discharge Disposition: Home w/ Parent or Adult Date of Admission: 12/30/22 16:46 Attending Provider on Discharge: Morena Antoine Primary Care Provider: Provider,Not a Local Condition: Unchanged Anticipated Discharge Date/Time: 01/10/23 10:13 Discharge Medications: New tramadol 50 mg tablet 50 mg PO Q6H PRN (Reason: pain) Qty: 15 0RF senna 8.6 mg capsule 8.6 mg PO DAILY PRN (Reason: constipation) Qty: 90 0RF Continued atorvastatin 10 mg tablet 10 mg PO DAILY aspirin 81 mg tablet,chewable 81 mg PO DAILY lisinopril 20 mg tablet 20 mg PO DAILY Label Comments: TAKE 1 TABLET BY MOUTH ONCE DAILY IN THE MORNING Discharge Orders: Discharge Order (Routine); Ordered 01/10/23 Ordered By: Morena Antoine Patient Education: Laxative, Stimulant (By mouth), Tramadol (By mouth), General Anesthesia (DC), Laparoscopic Appendectomy (DC), Post-Operative Instructions: Appendectomy Additional Instructions: Activity as tolerated. Avoid strenuous activity. No lifting greater than 20 lb for 6 weeks. Activity Level: No strenuous activity Discharge Diet: Regular Follow Up Appointments: Pat Bello MD [Staff Physician] - 01/15/23 3:15 pm (Post Op check with [facility] Bello at [facility]. ) Provider,Not a Local [Primary Care Provider] - Forms: [employer] Info Instructions Discharge Comments: You have sutures that are still in place. An appointment will be made for you on 01/08/2023 to remove the sutures. You are okay to shower. Do not soak in a bath or swim until your incisions are completely healed. You were prescribed a narcotic pain medication. In addition you may supplement with Tylenol and/or ibuprofen. Be sure to not exceed greater than 4 g of Tylenol in a 24 hour period. While on narcotic pain medicine please take stool softeners. A prescription of stool softeners has been sent to the pharmacy. Stop if having greater than 2 stools per day.
--- NOTE | 2023-01-10 14:39 | P.IMPN_ITS ---
Progress Note: A&P Assessment and plan (1) S/P appendectomy: Problem details: - 01/01/23 laparoscopic converted to open appendectomy for perforated appendicitis - 01/05/23 exploratory laparotomy with lysis of adhesions - primary postoperative management per General Surgery team -now off of TPN, tolerating orals. Transitioned off of IV enalapril to p.o. lisinopril. Hospital Medicine has signed off and I suspect he is ready for discharge. Status: Acute (2) Postoperative ileus: Problem details: Resolved Status: Acute (3) Essential hypertension: Problem details: - on lisinopril 20 mg on an outpatient, outpatient blood pressure typically runs 120/80s per chart review - while NPO - IV ACEI used for HTN management. Status: Acute Subjective Date Seen: 01/10/23 Interval history: Daily Progress Note - Hospital Medicine Day #: 12 POST OP DAY 11 (12/30 JULIA) Laparoscopic converted to open appendectomy POST OP DAY 5 (01/05 TEE) Pre-op diagnosis: 1. s/p laparoscopic converted to open appendectomy 6 days ago. 2. Non resolving postoperative ileus. Post-op diagnosis: 1. s/p open appendectomy. 2. 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 Type of Procedure: 1. Exploratory laparotomy. 2. Lysis of adhesions. CC: Perforated appendicitis, postop small-bowel obstruction requiring operative intervention, total parental nutrition OVERNIGHT UPDATES FROM STAFF & MED, LAB, IMAGING UPDATES Vitals reviewed and oral stable. He is on room air. He is afebrile. TMax 97.3 BP 126/78 No new labs this morning. He has been tolerating advancement in his diet. We restarted his oral lisinopril yesterday. His TPN was weaned off last night. Objective: Vitals: see above abdomen: soft, bowel sounds. Lungs: Clear. Cardiac: S1S2. Disposition/Potential discharge - Likely to return to previous living situation. Total time is 35 minutes with greater than 50% spent in counseling and coordination of care. Exam Const: Vital Signs, click to edit/add: Vital Signs - 24 hr 01/09/23 15:00 01/09/23 15:00 01/09/23 19:00 Temperature 98.1 F Pulse Rate [Right Pulse Oximeter] 85 78 Respiratory Rate 18 18 18 Blood Pressure [Ri ght Arm] 142/82 H Pulse Oximetry 96 96 96 Oxygen Delivery Me thod Room Air Room Air Room Air 01/09/23 23:51 01/10/23 03:00 01/10/23 07:43 Temperature 97.8 F Pulse Rate [Right Pulse Oximeter] 85 Respiratory Rate 18 Blood Pressure [Al ght Arm] 125/70 Pulse Oximetry 97 95 Oxygen Delivery Me thod Room Air Room Air Room Air 01/10/23 07:43 01/10/23 07:43 01/10/23 11:13 Temperature 97.3 F L 97.3 F L Pulse Rate [Right Pulse Oximeter] 87 87 81 Respiratory Rate 18 18 [facility] 129/84 126/78 Pulse Oximetry 95 97 Oxygen Delivery Me thod Room Air Room Air
--- NOTE | 2023-01-10 15:34 | PC.NURSE ---
Pt independent with ADL?s. Pt is on a full liquid diet and tolerating well. Pt calm and cooperative during shift. Pt alert and oriented x 4. Pt has had no complaints of pain. Pt?s vs stable. Pt?s dressing dry and intact. [place] in abdomen show no s/s of infection no draining, odor and skin pink around tim. Pt?s iv and PIIC line removed; intact. Pt discharged and accompanied by sister education provided to both parties.
== END 2023-01-10 15:10 | disposition home or self-care (01) | DRG 336 ==
LOC: ED 12:42 → SS 13:20 → MEDSURG 17:47 → SS 17:54 → MEDSURG 17:54
PROVIDERS: Family Medicine; Surgery; Admitting Provider Surgery; Emergency Provider Emergency Medicine Emergency Medical Services; Visit Provider Surgery
PROC: 0DTJ4ZZ Resection of Appendix, Percutaneous Endoscopic Approach (ICD-10-PCS; CPT 44970; principal; 2022-12-30 13:00)
PROC: 0DN80ZZ Release Small Intestine, Open Approach (ICD-10-PCS; CPT 49000; principal; 2023-01-05 17:00)
DX: K35.33 Acute appendicitis with perforation, localized peritonitis, and gangrene, with abscess (principal); J98.11 Atelectasis; K56.50 Intestinal adhesions [bands], unspecified as to partial versus complete obstruction; K56.7 Ileus, unspecified; K91.89 Other postprocedural complications and disorders of digestive system; Z53.31 Laparoscopic surgical procedure converted to open procedure; I10 Essential (primary) hypertension; I45.19 Other right bundle-branch block; E83.39 Other disorders of phosphorus metabolism; E87.6 Hypokalemia; E83.51 Hypocalcemia; R73.03 Prediabetes; E78.5 Hyperlipidemia, unspecified; Z80.0 Family history of malignant neoplasm of digestive organs
CPT/HCPCS: 00830; 00840; 36415; 36573; 71046; 74018; 74177; 80048; 80053; 80076; 82310; 82330; 82962; 83690; 83735; 84100; 84132; 84134; 84478; 85025; 85610; 87635; 88304; 93005; 99100; 99140; 99285; A4221; A9270; B4185; B4189; C9113; C9290; J0330; J0610; J0690; J1100; J1170; J1650; J2250; J2405; J2543; J2704; J3010; J3480; J3490; J7030; J7050; J7120; Q9965; Q9967